=== PATIENT | male | born 1945 | race Caucasian/White ===

== ENCOUNTER 2016-10-01 10:32 | Outpatient (CLI) | payer MEDICARE, OTHER | END 2016-10-01 10:33 | disposition critical access hospital (66) | DX: R56.9 Unspecified convulsions (principal) | CPT/HCPCS: A0425; A0427 ==

== ENCOUNTER 2016-10-01 10:52 | Emergency (ER) | payer MEDICARE, OTHER ==
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
[2016-10-01 11:51] LABS: BASOPHILS % (AUTO) 0.2 %; EOSINOPHILS % (AUTO) 0.2 %; HCT - HEMATOCRIT 41.7 % (42.0-52.0); HGB - HEMOGLOBIN 14.5 g/dL (14.0-18.0); LYMPHOCYTES # (AUTO) 0.4 10^3/uL (1.5-3.5); LYMPHOCYTES % (AUTO) 4.8 %; MEAN CORPUSCULAR HEMOGLOBIN 34.3 pg (27.0-31.0); MEAN CORPUSCULAR HGB CONC 34.8 g/dL (32.0-36.0); MEAN CORPUSCULAR VOLUME 98.5 fL (80.0-94.0); MEAN PLATELET VOLUME 7.1 fL (7.4-11.4); MONOCYTES # (AUTO) 0.6 10^3/uL (0.0-1.0); MONOCYTES % (AUTO) 6.8 %; NEUTROPHILS # (AUTO) 7.5 10^3/uL (1.5-6.6); RED BLOOD COUNT 4.24 10^6/uL (4.70-6.10); RED CELL DISTRIBUTION WIDTH 13.6 % (12.0-15.0); UNCORRECTED WHITE BLOOD COUNT 8.5 x10^3/uL; WHITE BLOOD COUNT 8.5 x10^3/uL (4.8-10.8)
[2016-10-01 12:04] LABS: ALBUMIN/GLOBULIN RATIO 1.6 (1.0-2.2); BILIRUBIN,TOTAL 0.8 mg/dL (0.2-1.0); CALCIUM 9.1 mg/dL (8.5-10.3); CREATININE 0.7 mg/dL (0.6-1.2); POTASSIUM 3.8 mmol/L (3.5-5.0); TOTAL PROTEIN 7.2 g/dL (6.7-8.2)
[2016-10-01 12:10] VITALS: BP 163/89
--- NOTE | 2016-10-01 12:29 | CT Report ---
EXAM: CT HEAD EXAM DATE: 10/01/2016 11:57 AM. CLINICAL HISTORY: Seizure. COMPARISON: CT HEAD 11/19/2012. TECHNIQUE: Multiaxial CT images were obtained from the foramen magnum to the vertex. IV contrast: Non e. Reformats: Coronal. In accordance with CT protocol optimization, one or more of the following dose reduction techniques w ere utilized for this exam: automated exposure control, adjustment of mA and/or KV based on patient s ize, or use of iterative reconstructive technique. FINDINGS: Parenchyma: Old infarct with encephalomalacia in the left occipital lobe extending to the left railroad conductor ior temporal and mildly the left parietal lobes. No acute intraparenchymal hemorrhage. Previous left intraparenchymal and intraventricular hemorrhage have resolved. No evidence of mass, midline shift, o r CT findings of infarction. Butcher-white differentiation is distinct. Extraaxial Spaces: Mild atrophic changes with mild prominent sulci. No subdural or epidural collectio ns identified. Ventricles: Mild ventriculomegaly. Normal in position. Sinuses: Imaged paranasal sinuses, orbits, and mastoids show no significant abnormality. Bones: No evidence of fracture or calvarial defect. Other: None. IMPRESSION: 1. No acute abnormality. 2. Old infarct with encephalomalacia in the left occipital lobe extending to the left posterior tempo ral and mildly the left parietal lobes. 3. No acute intraparenchymal hemorrhage. Previous left intraparenchymal and intraventricular hemorrha ge have resolved. 4. Mild atrophic changes. [facility] Referring Provider Line: [phone] SITE ID: [id number]
[2016-10-01 13:49] LABS: BILIRUBIN,URINE NEGATIVE (NEGATIVE)
[2016-10-01] MEDS ORDERED: LORazepam 2 MG/ML SYRINGE IVP STA (13:49)
[2016-10-01 13:50] LABS: UA CHARGE (STRIP ONLY) YES; UR CULTURE IF IND NOT INDICATED
[2016-10-01] MEDS ORDERED: LORazepam 2 MG/ML SYRINGE ONE (14:05)
== END 2016-10-01 14:20 | disposition home or self-care (01) ==
LOC: EDUNIT# → ED 10:52
DX: R56.9 Unspecified convulsions (principal); F10.10 Alcohol abuse, uncomplicated; F41.9 Anxiety disorder, unspecified; R00.0 Tachycardia, unspecified; I45.81 Long QT syndrome; E11.42 Type 2 diabetes mellitus with diabetic polyneuropathy; I10 Essential (primary) hypertension; Z86.73 Personal history of transient ischemic attack (TIA), and cerebral infarction without residual deficits; Z79.82 Long term (current) use of aspirin; Z96.649 Presence of unspecified artificial hip joint
CPT/HCPCS: 36415; 70450; 80053; 81003; 83690; 85025; 93005; 96374; 99284; 99285; J2060; 81001; 87086

== ENCOUNTER 2016-10-03 12:04 | Emergency (ER) | payer MEDICARE, OTHER ==
[2016-10-03] MEDS ORDERED: TETANUS/DIPHTHERIA/PERTUSSIS 0.5 ML SYRINGE IM ONE (12:37)
[2016-10-03] MEDS ORDERED: oxyCOD/ACETAMIN 5 MG/325 MG TABLET PO ONE ×2 (12:37→12:43)
[2016-10-03] MEDS: oxyCOD/ACETAMIN 5 MG/325 MG TABLET PO STA (12:40)
[2016-10-03] MEDS: TETANUS/DIPHTHERIA/PERTUSSIS 0.5 ML SYRINGE IM ONE (13:15)
--- NOTE | 2016-10-03 13:28 | CT Preliminary Report ---
Exam: CT Chest W/O IMPRESSION: Minimally displaced fractures of the right anterolateral seventh, eighth, and ninth ribs. No pneumothorax. [facility] SITE ID: [id number]
--- NOTE | 2016-10-03 13:31 | CT Report ---
EXAM: CT CHEST EXAM DATE: 10/03/2016 01:04 PM. CLINICAL HISTORY: Trauma right ant lat chest wall-fall. COMPARISONS: None. TECHNIQUE: Routine helical CT imaging was performed through the chest. IV contrast: None. Reconstruct ions: Coronal and sagittal. In accordance with CT protocol optimization, one or more of the following dose reduction techniques w ere utilized for this exam: automated exposure control, adjustment of mA and/or KV based on patient s ize, or use of iterative reconstructive technique. FINDINGS: Lungs/Pleura: Minimal atelectasis. No focal consolidation, effusion, or pneumothorax. Mediastinum: No adenopathy or cardiomegaly. Atherosclerotic calcifications. Bones: Minimally displaced fractures of the anterolateral right seventh through ninth ribs. Visualized Abdomen: Cholelithiasis. Normal adrenal glands. Other: Asymmetric gynecomastia. IMPRESSION: Minimally displaced fractures of the right anterolateral seventh, eighth, and ninth ribs. No pneumothorax. [facility] Referring Provider Line: [phone] SITE ID: [id number]
[2016-10-03 13:37] VITALS: BP 118/77
--- NOTE | 2016-10-03 14:29 | ED Physician Documentation ---
History of Present Illness - Stated complaint Stated Complaint: GLF/R SIDE PX - Chief complaint Chief Complaint: General - History obtained from History obtained from: Patient - Additonal information Additional information: Patient is a 70-year-old man with history of alcoholism. The patient had a seizure recently and fell yesterday injuring his right costal margin area. He did not seek medical attention initially but the pain failed to subside and actually got a little worse today. He is not overtly dyspneic and has no history of underlying pulmonary disease. He complains of pain to the right costal margin every time he takes a deep breath and with palpation. He denies any head or neck injury and has no numbness or tingling or any other extremity injury. He is here in emergency department accompanied by his . Review of systems: For pertinent positive and negative questions for the review of systems please see history of present illness. Otherwise all other systems have been reviewed and are negative. Dragon disclaimer: Parts of this medical record were created using voice recognition technology. Because of the inherent limitations of this system occasional same sounding word substitutions do occur and persist despite proofreading. Please read the document for context. PD PAST MEDICAL HISTORY - Past Medical History Cardiovascular: Hypertension, High cholesterol, Other Respiratory: Sleep apnea Neuro: CVA, TIA, Peripheral neuropathy, Seizure disorder Endocrine/Autoimmune: Type 2 diabetes GI: GERD : Benign prostate hypertrophy, Other HEENT: Chronic hearing loss, Other Psych: Anxiety, Claustrophobia Musculoskeletal: Osteoarthritis Derm: Other - Past Surgical History Past Surgical History: Yes General: Colonoscopy Ortho: Hip replacement HEENT: Tonsil/Adenoidectomy, Other - Present Medications Home Medications: Ambulatory Orders Medication Instructions Recorded Confirmed Aspirin [Aspirin EC] 325 mg PO DAILY 11/19/12 10/03/16 Calcium Carbonate/Vitamin D3 1 each PO DAILY 11/19/12 10/03/16 [Calcium 600 + Vit D Caplet] Gabapentin [Gralise] 600 mg PO BID 11/19/12 10/03/16 Meclizine [Antivert] 25 mg PO DAILY 11/19/12 10/03/16 Metoprolol Succinate [Toprol Xl] 50 mg PO DAILY 11/19/12 10/03/16 Multivitamin [Multi-Vitamin Daily] 1 each PO DAILY 11/19/12 10/03/16 Omeprazole [PriLOSEC] 20 mg PO DAILY 11/19/12 10/03/16 Ubidecarenone [Coq-10] 100 mg PO DAILY 11/19/12 10/03/16 busPIRone [Buspar] 5 mg PO BID 11/19/12 10/03/16 Folic Acid 1 mg PO DAILY 07/05/14 10/03/16 [place]-3 Fatty Acids/Fish Oil 1 tab PO TID 07/05/14 10/03/16 [[place] 3 1,000 mg Softgel] Coffee Extract [Green Coffee Rosas] 400 mg PO DAILY 10/16/14 10/03/16 Milk Thistle Seed Extract [Milk 360 mg PO DAILY 10/16/14 10/03/16 Thistle] oxyCODONE/ACET 5/325 [Percocet 5 1 each PO Q4-6H PRN #16 tablet 10/03/16 mg/325 mg] - Allergies Allergies/Adverse Reactions: Allergies Allergy/AdvReac Type Severity Reaction Status Date / Time celecoxib [From Celebrex] Allergy Severe swelling & Verified 10/03/16 12:31 hives simvastatin [From Zocor] Allergy Unknown unknown Verified 10/03/16 12:31 - Social History Does the pt smoke?: No Smoking Status: Never smoker Does the pt drink ETOH?: Yes Does the pt have substance abuse?: No - POLST Patient has POLST: No PD ED PE NORMAL - General General: Alert and oriented X 3, No acute distress, Well developed/nourished - HEENT HEENT: Atraumatic, PERRL, EOMI - Neck Neck: Supple, no meningeal sign - Cardiac Cardiac: RRR, No murmur - Respiratory Respiratory: No respiratory distress, Clear bilaterally - Abdomen Abdomen: Normal bowel sounds, Soft - Derm Derm: Normal color, Warm and dry - Extremities Extremities: No deformity - Neuro Neuro: Alert and oriented X 3, hydrate control tender 2-12 intact - Psych Psych: Normal mood - Free text exam Free text exam: Patient has a palpable hematoma and crepitance along the right anterior lateral chest wall approximately over theSeventh and eighth ribs laterally. He is otherwise breathing comfortably without any subcutaneous emphysema Results - Vitals Vitals: Vital Signs - 24 hr 10/03/16 10/03/16 12:07 13:34 Temperature 36.2 C L Heart Rate 70 66 Respiratory 18 16 Rate Blood Pressure 148/90 H 118/77 O2 Saturation 98 97 Oxygen O2 Source Room air PD MEDICAL DECISION MAKING - ED course ED course: This patient presents 1 day after a fall where he injured his right sided ribs. He does not have any abdominal pain complaints nausea vomiting constipation or diarrhea. Despite the rib injuries which are fairly obvious on physical examination he is breathing comfortably without a cough. He is normoxic. A CT of the patient's thorax was done without contrast and this demonstrates nondisplaced fractures of the seventh eighth and ninth rib. There is no evidence of pulmonary contusion or pneumothorax. The patient more or less assisted the test of time he has had this injury for over a day and is doing well at this standpoint I see no obvious need for admission. Had he come in yesterday might have contemplated admission however. There is no evidence of any other traumatic injury to his head neck or more importantly abdomen. He was given a small amount of pain medication and feels better. I will have respiratory issue him an incentive spirometer and he has agreed to use it religiously. I will also write him For small amount of narcotic analgesia. Disposition: To home Clinical impression: 1. Rib fractures right costal margin involving ribs7, 8, and 9 Departure - Departure Disposition: 01 Home, Self Care Clinical Impression: Rib fractures Qualifiers: Encounter type: initial encounter Rib fracture type: multiple ribs Fracture type: closed Laterality: right Qualified Code(s): S22.41XA - Multiple fractures of ribs, right side, initial encounter for closed fracture Condition: Good Instructions: ED Fx Rib Follow-Up: Jorge Luis Foley MD [Primary Care Provider] - Prescriptions: oxyCODONE/ACET 5/325 [Percocet 5 mg/325 mg] 1 each PO Q4-6H PRN #16 tablet PRN Reason: Pain
== END 2016-10-03 14:40 | disposition home or self-care (01) ==
LOC: ED 12:04
DX: S22.41XA Multiple fractures of ribs, right side, initial encounter for closed fracture (principal); W01.0XXA Fall on same level from slipping, tripping and stumbling without subsequent striking against object, initial encounter; I10 Essential (primary) hypertension; E78.00 Pure hypercholesterolemia, unspecified; G47.30 Sleep apnea, unspecified; E11.9 Type 2 diabetes mellitus without complications; K21.9 Gastro-esophageal reflux disease without esophagitis; N40.0 Benign prostatic hyperplasia without lower urinary tract symptoms; M19.90 Unspecified osteoarthritis, unspecified site; Z79.82 Long term (current) use of aspirin; Z86.73 Personal history of transient ischemic attack (TIA), and cerebral infarction without residual deficits
CPT/HCPCS: 71250; 90471; 99283; 99284

== ENCOUNTER 2017-09-27 14:51 | Outpatient (CLI) | payer MEDICARE, OTHER ==
[2017-09-27] MEDS ORDERED: GADOBUTROL 10 MMOL/10 ML VIAL ONE (15:05)
[2017-09-27] MEDS ORDERED: GADOBUTROL 10 MMOL/10 ML VIAL IVP ONE (15:18)
--- NOTE | 2017-09-28 14:38 | MRI Report ---
Procedure Date: 09/27/2017 Accession Number: [id number] / [id number] Procedure: MRI - Brain W/WO CPT Code: FULL RESULT: EXAM: MRI BRAIN WITHOUT AND WITH CONTRAST EXAM DATE: 09/27/2017 04:00 PM. CLINICAL HISTORY: Recurrent spells of expressive aphasia. COMPARISON: MRI of the brain 01/07/2015, 08/20/2012. CT scan of the head 10/01/2016. TECHNIQUE: Multiplanar, multisequence T1-weighted and fluid-sensitive MR sequences of the brain were performed. Sequences optimized for routine evaluation. Other: None. IV Contrast: 10 cc Gadavist. FINDINGS: Brain Volume: Normal for age. Parenchyma: No acute hemorrhage, mass, or infarct. Cystic encephalomalacia from old left JEWEL STRIPPER territory infarct is seen involving the inferior left occipital and posterior temporal lobes. This is unchanged. Heterogeneous linear gyriform hypointense signal with magnetic susceptibility consistent with hemosiderin staining is evident. This could be secondary to sequela of previous hemorrhagic infarct. This is unchanged. No parenchymal hematoma. Additionally subependymal hypointense magnetic susceptibility consistent with hemosiderin staining is seen throughout the left lateral ventricle. This predominates in the temporal horn, atrium, and along the septum pellucidum throughout the body. Dependent subependymal hypointense magnetic susceptibility is seen in the occipital horn of the right lateral ventricle. Gyriform pial surface magnetic susceptibility is seen laterally at the right temporoparietal junction. This is also seen inferomedially in the left occipital lobe and adjacent superior cerebellum at the level of the incisura. This is consistent with superficial siderosis. Mild patchy white matter T2 and FLAIR bright signal is seen throughout the cerebral hemispheres. Mild prominence to perivascular spaces is seen overlying the cerebral convexities bilaterally. No abnormal enhancement. Ventricles/Cisterns: No hydrocephalus. No abnormal extra-axial fluid collection or hemorrhage. Orbits: Symmetric and unremarkable. [place]: The pituitary gland, cavernous sinuses, suprasellar cistern and optic chiasm are unremarkable. IAC: Symmetric and unremarkable. Vasculature: Normal signal flow void is seen in the major arterial structures at the skull base. The dural sinuses are patent and enhance normally. Sinuses: No acute sinus disease. Bones: No focal pathologic appearing marrow signal changes. Other: None. IMPRESSION: 1. No acute intracranial abnormality. No acute infarct, mass, hemorrhage, or abnormal enhancement. 2. Cystic encephalomalacia likely from old left JEWEL STRIPPER territory infarct involving the inferior left occipital and posterior temporal lobes. Hypointense magnetic susceptibility consistent with hemosiderin from old hemorrhage is seen. 3. Superficial siderosis is noted. This is seen in a subependymal location throughout the left lateral ventricle and dependently in the occipital horn of the right lateral ventricle. This is noted lateral to the right temporoparietal junction. This is seen at the level of the incisura involving inferior occipital lobes and superior cerebellum. This is consistent with sequela of old hemorrhage. 4. Mild white matter T2/FLAIR bright signal seen in the cerebral hemispheres. This is nonspecific but typically secondary to small vessel ischemic change. [facility]
== END 2017-09-27 14:52 | disposition home or self-care (01) ==
LOC: DI 14:51
PROVIDERS: ATTEND Internal Medicine
DX: R47.01 Aphasia (principal); R26.89 Other abnormalities of gait and mobility; G93.89 Other specified disorders of brain; Z86.73 Personal history of transient ischemic attack (TIA), and cerebral infarction without residual deficits
CPT/HCPCS: 70553; A9585

== ENCOUNTER 2017-11-03 11:06 | Outpatient (CLI) | payer MEDICARE, OTHER ==
[2017-11-03 11:38] LABS: CREATININE 0.8 mg/dL (0.6-1.2)
== END 2017-11-03 11:07 | disposition home or self-care (01) ==
LOC: LAB 11:06
PROVIDERS: ATTEND Physician Assistant Medical
DX: B35.1 Tinea unguium (principal); Z79.899 Other long term (current) drug therapy
CPT/HCPCS: 36415; 82565; 84450; 84460

== ENCOUNTER 2017-12-30 08:31 | Outpatient (CLI) | payer MEDICARE, OTHER ==
[2017-12-30 09:10] LABS: CREATININE 0.7 mg/dL (0.6-1.2)
== END 2017-12-30 08:32 | disposition home or self-care (01) ==
LOC: LAB 08:31
PROVIDERS: ATTEND Physician Assistant Medical
DX: B35.1 Tinea unguium (principal); Z79.899 Other long term (current) drug therapy
CPT/HCPCS: 36415; 82565; 84450; 84460

== ENCOUNTER 2018-08-04 12:06 | Outpatient (CLI) | payer MEDICARE, OTHER ==
[2018-08-04 12:38] LABS: ALBUMIN 3.8 g/dL (3.2-5.5); BILIRUBIN,DIRECT 0.1 mg/dL (0.1-0.5); BILIRUBIN,TOTAL 0.6 mg/dL (0.2-1.0); TOTAL PROTEIN 6.4 g/dL (6.7-8.2)
== END 2018-08-04 12:07 | disposition home or self-care (01) ==
LOC: LAB 12:06
PROVIDERS: ATTEND Physician Assistant Medical
DX: B35.1 Tinea unguium (principal); Z79.899 Other long term (current) drug therapy
CPT/HCPCS: 36415; 80076

== ENCOUNTER 2018-11-30 09:33 | Outpatient (CLI) | payer MEDICARE, OTHER | END 2018-11-30 09:34 | disposition critical access hospital (66) | LOC: EMS 09:33 | PROVIDERS: ATTEND Surgery | DX: R56.9 Unspecified convulsions (principal) | CPT/HCPCS: A0425; A0429 ==

== ENCOUNTER 2018-11-30 09:45 | Inpatient (IN) | payer MEDICARE, OTHER ==
--- NOTE | 2018-11-30 09:58 | ED Physician Documentation ---
PD HPI SEIZURE - Stated complaint Stated Complaint: SEIZURE - Chief complaint Chief Complaint: Neuro - History obtained from History obtained from: Patient - History of Present Illness Timing - onset: Today (This occurred just prior to coming to the ER. He states he has been feeling okay this morning without doing some chores into the garage. There is no strenuous activity. He states he started feeling lightheaded and nauseous and then does not remember until the ambulance ride here. His states she heard a thud from the garage and went out to find him having general motor seizure activity. This lasted under a minute. It did appear that he had hit his head with some bleeding from an abrasion on the scalp. She called the ambulance and the patient had stopped seizing and was awake but confused on their arrival. He had improvement in this to more alertness by arrival here in the ER. He denies any prior seizure episodes. He has been having some lightheaded brief episodes over the last month or so but nothing of this degree.) Witnessed: Witnessed Number of seizures: Single, Lasted minutes (1) Description of seizure activity: Generalized Injury during seizure: Fell, Head injury Associated symptoms: Headache. No: Vision changes, Chest pain, Palpitations History of seizures: First seizure. No: Prior EtOH wdrawal sz Contributing factors: No: EtOH withdrawal (He states he probably "drinks too much" when asked about alcohol consumption. He denies any withdrawal type symptoms. He states he does drink daily but not throughout the whole day. He was not having any tremor or rash or anxiety feelings prior to this episode.), Fever, Sleep deprivation Similar symptoms before: No diagnosis (He has had brief lightheaded episodes of just 30 seconds at a time up to a minute or 2. He had not had any syncope with it. His describes one episode where he was laying down in the car or head rested back and he did not answer right away but she was not sure if he would passed out or not. 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 However this only lasted 2 days before falling off in the mail the back again. He states he did not have any episodes during the 2 days he had the monitor on.) Recently seen: Clinic Review of Systems Constitutional: denies: Fever, Chills, Myalgias Eyes: denies: Loss of vision, Decreased vision Nose: denies: Rhinorrhea / runny nose, Congestion Throat: denies: Sore throat Respiratory: denies: Cough GI: denies: Abdominal Pain, Nausea, Vomiting, Diarrhea, Bloody / black stool : denies: Dysuria, Frequency Skin: reports: Abrasion (s). denies: Laceration (s) Musculoskeletal: denies: Neck pain, Back pain Neurologic: reports: Syncope. denies: Focal weakness, Numbness, Headache Endocrine: denies: Polydypsia, Weight loss Immunocompromised: denies: Immunocompromised PD PAST MEDICAL HISTORY - Past Medical History Cardiovascular: Hypertension, High cholesterol, Other Respiratory: Sleep apnea Endocrine/Autoimmune: Type 2 diabetes GI: GERD : Benign prostate hypertrophy, Other HEENT: Chronic hearing loss, Other Psych: Anxiety, Claustrophobia Musculoskeletal: Osteoarthritis Derm: Other - Past Surgical History Past Surgical History: Yes General: Colonoscopy Ortho: Hip replacement HEENT: Tonsil/Adenoidectomy, Other - Present Medications Home Medications: Ambulatory Orders Medication Instructions Recorded Confirmed Aspirin [Aspirin EC] 325 mg PO DAILY 11/19/12 10/03/16 Calcium Carbonate/Vitamin D3 1 each PO DAILY 11/19/12 10/03/16 [Calcium 600 + Vit D Caplet] Gabapentin [Gralise] 600 mg PO BID 11/19/12 10/03/16 Meclizine [Antivert] 25 mg PO DAILY 11/19/12 10/03/16 Metoprolol Succinate [Toprol Xl] 50 mg PO DAILY 11/19/12 10/03/16 Multivitamin [Multi-Vitamin Daily] 1 each PO DAILY 11/19/12 10/03/16 Omeprazole [PriLOSEC] 20 mg PO DAILY 11/19/12 10/03/16 Ubidecarenone [Coq-10] 100 mg PO DAILY 11/19/12 10/03/16 busPIRone [Buspar] 5 mg PO BID 11/19/12 10/03/16 Folic Acid 1 mg PO DAILY 07/05/14 10/03/16 [place]-3 Fatty Acids/Fish Oil 1 tab PO TID 07/05/14 10/03/16 [[place] 3 1,000 mg Softgel] Coffee Extract [Green Coffee Rosas] 400 mg PO DAILY 10/16/14 10/03/16 Milk Thistle Seed Extract [Milk 360 mg PO DAILY 10/16/14 10/03/16 Thistle] oxyCODONE/ACET 5/325 [Percocet 5 1 each PO Q4-6H PRN #16 tablet 10/03/16 mg/325 mg] - Allergies Allergies/Adverse Reactions: Allergies Allergy/AdvReac Type Severity Reaction Status Date / Time celecoxib [From Celebrex] Allergy Severe swelling & Verified 10/03/16 12:31 hives simvastatin [From Zocor] Allergy Unknown unknown Verified 10/03/16 12:31 - Social History Does the pt smoke?: No Smoking Status: Never smoker Does the pt drink ETOH?: Yes Does the pt have substance abuse?: No - POLST Patient has POLST: No PD ED PE NORMAL - Vitals Vital signs reviewed: Yes - General General: Alert and oriented X 3, No acute distress, Well developed/nourished - HEENT HEENT: PERRL, Pharynx benign, Other (He has an abrasion without any bleeding on the top of the head. He has some mild tenderness in the para cervical muscles. There is no midline tenderness. He has normal strength and movement in both arms. He has some decreased sensation in both legs which he states is normal for his neuropathy. There is a brace on the right ankle that he uses chronically.) - Neck Neck: Supple, no meningeal sign, No adenopathy - Cardiac Cardiac: RRR, No murmur - Respiratory Respiratory: Clear bilaterally - Abdomen Abdomen: Soft, Non tender - Male Male : Deferred - Rectal Rectal: Deferred - Back Back: No CVA TTP, No spinal TTP - Derm Derm: Normal color, Warm and dry - Extremities Extremities: No tenderness to palpate, Normal ROM s pain - Neuro Neuro: Alert and oriented X 3, No motor deficit, Normal speech, Other (Decreased sensation in both feet and lower legs which she states is chronic for him.) Eye Opening: Spontaneous Motor: Obeys Commands Verbal: Oriented GCS Score: 15 Results - Vitals Vitals: Vital Signs - 24 hr 11/30/18 11/30/18 11/30/18 09:48 10:10 10:41 Temperature 36.8 C Heart Rate 116 H 115 H 120 H Respiratory 17 20 20 Rate Blood Pressure 148/78 H 155/79 H 137/75 H O2 Saturation 96 95 97 11/30/18 11:52 Temperature Heart Rate 100 Respiratory 16 Rate Blood Pressure 160/88 H O2 Saturation 98 Oxygen O2 Source Room air - EKG (time done) 10:27 Rate: Rate (enter#) (105) Rhythm: Sinus tachycardia [place]: Normal Intervals: Normal TN QRS: Normal Ischemia: Normal ST segments. No: ST elevation c/w ischemia, ST depression - Labs Labs: Laboratory Tests 11/30/18 11/30/18 11/30/18 10:35 10:35 10:35 WBC 6.5 RBC 4.20 L Hgb 14.0 Hct 38.9 L MCV 92.6 MCH 33.3 H MCHC 36.0 RDW 12.1 Plt Count 138 MPV 9.1 Neut # (Auto) 5.5 Lymph # (Auto) 0.5 L [place] # (Auto) 0.5 Eos # (Auto) 0.0 Baso # (Auto) 0.0 Absolute Nucleated RBC 0.00 Nucleated RBC % 0.0 Sodium 124 L Potassium 3.6 Chloride 85 L Carbon Dioxide 23 Anion Gap 16.0 H BUN 12 Creatinine 0.8 Estimated GFR (MDRD) 96 Glucose 198 H Lactic Acid 3.6 H* Calcium 9.5 Magnesium 1.7 Total Bilirubin 1.2 H AST 29 ALT 23 Alkaline Phosphatase 80 Troponin I High Sens Total Protein 7.2 Albumin 4.5 Globulin 2.7 Albumin/Globulin Ratio 1.7 Lipase 26 TSH Ethyl Alcohol < 5.0 11/30/18 11/30/18 10:35 10:35 WBC RBC Hgb Hct MCV MCH MCHC RDW Plt Count MPV Neut # (Auto) Lymph # (Auto) [place] # (Auto) Eos # (Auto) Baso # (Auto) Absolute Nucleated RBC Nucleated RBC % Sodium Potassium Chloride Carbon Dioxide Anion Gap BUN Creatinine Estimated GFR (MDRD) Glucose Lactic Acid Calcium Magnesium Total Bilirubin AST ALT Alkaline Phosphatase Troponin I High Sens 4.1 Total Protein Albumin Globulin Albumin/Globulin Ratio Lipase TSH 1.08 Ethyl Alcohol - Rads (name of study) head CT Radiology: Prelim report reviewed (no acute process), See rad report cervical CT Radiology: Prelim report reviewed, See rad report (no fractures) PD MEDICAL DECISION MAKING - ED course Complexity details: reviewed results, re-evaluated patient, considered differential (Unclear whether he had a syncopal episode followed with head injury and seizure activity. Unlikely to be a primary seizure episode at his age. He had a postictal type. And clearing suggestive of seizure. However this may have been cardiovascular. His blood sugar was checked on route and was normal. I think further evaluation is needed as well as heart monitoring for syncope versus seizure versus concussion. I will talk with the hospitalist.), d/w patient, d/w family Departure - Departure Disposition: 66 [facility] DC/Xfer Clinical Impression: Episode of syncope, Head contusion, Seizure Condition: Stable
[2018-11-30] MEDS ORDERED: SODIUM CHLORIDE 0.9% 1,000 ML IV ONE (10:15)
[2018-11-30] MEDS ORDERED: LORazepam 2 MG/ML VIAL IVP STA (10:16)
[2018-11-30 10:44] LABS: BASOPHILS % (AUTO) 0.2 %; EOSINOPHILS % (AUTO) 0.3 %; LYMPHOCYTES # (AUTO) 0.5 10^3/uL (1.5-3.5); LYMPHOCYTES % (AUTO) 6.9 %; MEAN CORPUSCULAR HEMOGLOBIN 33.3 pg (27.0-31.0); MEAN CORPUSCULAR VOLUME 92.6 fL (80.0-94.0); MEAN PLATELET VOLUME 9.1 fL (7.4-11.4); MONOCYTES # (AUTO) 0.5 10^3/uL (0.0-1.0); MONOCYTES % (AUTO) 7.1 %; NEUTROPHILS # (AUTO) 5.5 10^3/uL (1.5-6.6); NEUTROPHILS % (AUTO) 84.7 %; PLT - PLATELET COUNT 138 10^3/uL (130-450); RED CELL DISTRIBUTION WIDTH 12.1 % (12.0-15.0); WHITE BLOOD COUNT 6.5 x10^3/uL (4.8-10.8)
[2018-11-30 10:57] LABS: ALBUMIN 4.5 g/dL (3.2-5.5); ALBUMIN/GLOBULIN RATIO 1.7 (1.0-2.2); ALKALINE PHOSPHATASE 80 IU/L (42-121); ALT ALANINE AMINOTRANSFERASE 23 IU/L (10-60); AST ASPARTATE AMINOTRANSFERASE 29 IU/L (10-42); BILIRUBIN,TOTAL 1.2 mg/dL (0.2-1.0); BUN - BLOOD UREA NITROGEN 12 mg/dL (6-20); CALCIUM 9.5 mg/dL (8.5-10.3); CARBON DIOXIDE - CO2 23 mmol/L (21-32); CHLORIDE 85 mmol/L (101-111); CREATININE 0.8 mg/dL (0.6-1.2); GFR - MDRD 96 (>89); GLUCOSE 198 mg/dL (70-100); LIPASE 26 U/L (22-51); MAGNESIUM 1.7 mg/dL (1.7-2.8); SODIUM 124 mmol/L (135-145); TOTAL PROTEIN 7.2 g/dL (6.7-8.2)
--- NOTE | 2018-11-30 11:47 | CT Report ---
Reason: seizure this morning; struck head Procedure Date: 11/30/2018 Accession Number: [id number] / [id number] Procedure: CT - CERVICAL SPINE WO CPT Code: FULL RESULT: EXAM: CT CERVICAL SPINE WITHOUT CONTRAST DATE: 11/30/2018 11:23 AM. HISTORY: Seizure this morning; struck head. COMPARISONS: HEAD W/O 10/01/2016 11:51 AM. TECHNIQUE: Thin-section axial images were acquired of the cervical spine without contrast. Post-processing: Coronal and sagittal reformats. Other: None. In accordance with CT protocol optimization, one or more of the following dose reduction techniques were utilized for this exam: automated exposure control, adjustment of mA and/or KV based on patient size, or use of iterative reconstructive technique. FINDINGS: Alignment: No scoliosis or spondylolisthesis. Bones: No fracture or bone lesion. Interspace Levels/Facets: Degenerative facet changes are present throughout majority of cervical spine. C1-C2: Unremarkable. C2-C3: Unremarkable. C3-C4: Bilateral facet joints are partially ankylosed. C4-C5: Unremarkable. C5-C6: Moderate loss of disk space height. Moderate bilateral neuroforaminal narrowing due to uncovertebral and facet joint hypertrophy. C6-C7: Moderate to severe left and mild right neural foraminal narrowing due to bilateral uncovertebral joint hypertrophy and left facet hypertrophy. C7-T1: Unremarkable. Musculature: Normal. No fatty atrophy. Other: The paravertebral and prevertebral soft tissues are unremarkable. The lung apices are clear. IMPRESSION: 1. Overall moderate degenerative changes. 2. No fracture. RADIA
--- NOTE | 2018-11-30 11:53 | CT Report ---
Reason: seizure this morning Procedure Date: 11/30/2018 Accession Number: [id number] / [id number] Procedure: CT - HEAD WO CPT Code: FULL RESULT: EXAM: CT HEAD EXAM DATE: 11/30/2018 11:23 AM. CLINICAL HISTORY: Seizure this morning. COMPARISON: HEAD W/O 10/01/2016 11:51 AM. TECHNIQUE: Multiaxial CT images were obtained from the foramen magnum to the vertex. Reformats: Sagittal and coronal. IV contrast: None. In accordance with CT protocol optimization, one or more of the following dose reduction techniques were utilized for this exam: automated exposure control, adjustment of mA and/or KV based on patient size, or use of iterative reconstructive technique. FINDINGS: Parenchyma: No intraparenchymal hemorrhage. No evidence of mass, midline shift, or CT findings of acute infarction. Butcher-white differentiation is distinct. Diffuse chronic microangiopathic white matter changes are evident. Left occipital temporal encephalomalacia from remote left DOLL WIG MAKER ROOTED HAIR infarct again noted. Extraaxial Spaces: Normal for age. No subdural or epidural collections identified. Ventricles: The ventricles and cortical sulci are enlarged, consistent with age-related tissue loss. Sinuses and orbits: Imaged paranasal sinuses, orbits, and mastoids show no significant abnormality. Bones: No evidence of fracture or calvarial defect. Other: None. IMPRESSION: 1. Left occipital-temporal encephalomalacia from remote left DOLL W[employer] MA[employer]ER ROOTED HAIR infarct again noted. 2. No acute intracranial hemorrhage or large recent infarct evident. 3. Generalized age-related cortical atrophic changes. RADIA
[2018-11-30] MEDS ORDERED: PROCHLORPERAZINE 10 MG/2 ML VIAL IVP PRN (13:14)
[2018-11-30 13:38] LABS: INR 1.1 (0.8-1.2); PT - PROTHROMBIN TIME 12.2 secs (9.9-12.6)
[2018-11-30] MEDS: SODIUM CHLORIDE 0.9% 1,000 ML IV SCH (14:00)
[2018-11-30 14:40] LABS: VBG PCO2 38.7 mmHg (41-51); VBG PH 7.416 (7.31-7.41); VBG PO2 43.2 mmHg (25-47); VBG TOTAL CO2 25.5 mmol/L (24-29)
[2018-11-30 15:55] LABS: HB2 TOTAL 15.4 g/dL; HEMOGLOBIN A1C 0.63 g/dL; HEMOGLOBIN A1C % 5.9 % (4.6-6.2)
[2018-11-30 16:21] LABS: MUDS CUTOFF CONCENTRATIONS CUTOFF CONC BELOW:
[2018-11-30 16:24] LABS: BILIRUBIN,URINE NEGATIVE (NEGATIVE); GLUCOSE, URINE (UA) NEGATIVE (NEGATIVE); KETONES,URINE (UA) 15 mg/dL (NEGATIVE); LEUKOCYTE ESTERASE, URINE NEGATIVE (NEGATIVE); NITRITE,URINE NEGATIVE (NEGATIVE); OCCULT BLOOD,URINE NEGATIVE (NEGATIVE); PROTEIN,URINE NEGATIVE (NEGATIVE); UROBILINOGEN,URINE 1 (NORMAL) E.U./dL (NORMAL)
[2018-11-30 16:25] LABS: CLARITY,URINE CLEAR (CLEAR)
[2018-11-30 16:34] LABS: AMPHETAMINE SCREEN,URINE NEGATIVE (NEGATIVE); BENZODIAZEPINES SCREEN, URINE NEGATIVE (NEGATIVE); COCAINE SCREEN URINE NEGATIVE (NEGATIVE); METHADONE SCREEN, URINE NEGATIVE (NEGATIVE); METHAMPHETAMINES SCREEN, URINE NEGATIVE (NEGATIVE); OPIATE SCREEN, URINE NEGATIVE (NEGATIVE); OXYCODONE SCREEN, URINE NEGATIVE (NEGATIVE); PROPOXYPHENE SCREEN, URINE NEGATIVE (NEGATIVE); TRICYCLIC ANTIDEPRESSANT,URINE NEGATIVE (NEGATIVE)
[2018-11-30] MEDS: INSULIN ASPART 300 UNIT/3 ML PEN SUBQ SCH ×2 (16:44→21:07)
[2018-11-30] MEDS: SODIUM CHLORIDE FLUSH 0.9% 10 ML SYRINGE IVP SCH ×2 (16:49→21:01)
[2018-11-30] MEDS: ACETAMINOPHEN 325 MG TABLET PO PRN (18:08)
[2018-11-30] MEDS: LORazepam 2 MG/ML VIAL IVP PRN (18:31)
--- NOTE | 2018-11-30 19:04 | HISTORY & PHYSICAL EXAMINATION ---
DATE OF SERVICE: 11/30/2018 Physician: Asha Noonan MD HISTORY OF PRESENT ILLNESS: This is a 72-year-old white male with a history of borderline diabetes, only on diet, history of hypertension, and anxiety and depression. There is an intermittent history of alcohol abuse. He was at [facility] for detox as an inpatient several months ago, however, resumed drinking right after he was discharged and has done that for about 3 months now, and he drinks 4 vodka cocktails every night. His has been out of town for the last 3 and a half weeks, helping a friend with chemotherapy, and just came back into town 4 days ago. The man has been evaluated for a one-year history of "spells," which are episodes of lightheadedness and dizziness and near syncope along with brief nausea, but no vomiting. They can happen up to 1-2 times a day, and he has been referred to a folder gluer operator, who started the evaluation with a 1-week Holter monitor. The patient wore the leads for 2 days, then they fell off, and during those 2 days, he had not one of his "spells". The results of 2 days of monitoring are not yet available to the patient. The patient and describe 2 episodes of this "spell" resulting in full syncope: One when he was sitting on a couch and when the syncope occurred, he slumped his body onto the couch and then was able to wake up and sit up and continue what he was doing, and the other episode happened when he was the passenger in a car and his saw that he had fainted, and as he was waking up, when she asked him how he felt, his answer was gibberish, but they did not go to an ER then. Today, the patient went out in the morning to work in the garage and reports that he felt his dizzy "spell" starting, and held onto the side of a car. At this point the heard through the window, that he was moaning. As she went to check on him, she heard a thump and found him on the ground of the garage, and he was having tonic-clonic seizures which lasted approximately 2 minutes. She called the ambulance and he was waking up at this point, and the ambulance brought him to the emergency room. There was a scalp laceration on the upper part of his scalp, and he had no focal findings on a neurology exam. He underwent a CT scan, which showed no sign of an acute stroke. The patient is admitted to the ICU for new onset of seizures, syncopal episode, and abnormal labs. He complains of pain in his lateral upper left ribcage. PAST MEDICAL HISTORY 1. Hypertension. 2. Alcohol abuse. 3. Borderline diabetes; only on a diet. 4. Left knee replacement. 5. Peripheral neuropathy. MEDICATIONS 1. Naprosyn 220 mg b.i.d. p.r.n. 2. Baby aspirin daily. 3. Prilosec 20 mg p.r.n. heartburn. 4. Antivert p.r.n. 5. Folic acid daily. 6. Multivitamin with calcium and vitamin D3 daily. 7. Losartan 80 mg every night. 8. Atorvastatin 20 mg every night. 9. Clonidine 0.1 mg p.r.n. for unknown diagnosis. 10. Tamsulosin 0.4 mg daily. 11. Toprol-XL 50 mg daily. 12. Lyrica 75 mg t.i.d. 13. BuSpar 15 mg b.i.d. 14. CoQ10 daily. ALLERGIES 1. SIMVASTATIN. 2. CELEBREX CAUSED SWELLING AND HIVES. FAMILY HISTORY: No inherited diseases. SOCIAL HISTORY: The patient is a nonsmoker, who never smoked, and uses no illicit drugs. He has an alcohol abuse history and currently has resumed heavy alcohol intake over the past 3 months. 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 He and his live in [place] for part of the year from January to May. REVIEW OF SYSTEMS: A comprehensive review of systems was performed and the pertinent positives are listed; the rest are negative. 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 VITAL SIGNS: Blood pressure 137/75, heart rate 120 in sinus tachycardia, afebrile, room air saturation 97%. HEENT: Reveals some diaphoresis. Moist oral mucosa. NECK: Without JVD, no carotid bruits, and is supple. CHEST: Clear. HEART: Normal heart sounds. No murmur or gallop. ABDOMEN: Soft with positive bowel sounds, nontender. EXTREMITIES: No clubbing, cyanosis or edema. NEUROLOGIC: Grossly intact. LABORATORY DATA: Sodium 124, potassium 3.6, BUN 12, creatinine 0.8. His anion gap is high at 16. His lactic acid is high at 3.6, magnesium 1.7, bilirubin 1.2 with normal AST and ALT and alkaline phosphatase and lipase. TSH normal at 1.08. HS troponin normal at 4.1. A1c normal at 5.9. White blood count 6.5, hemoglobin 14 with a normal MCV of 93, platelet count normal at 138. INR normal at 1.1. VBG done for pH, which was normal at 7.41. Toxicology is negative for everything, including alcohol, and serum ketones are negative. Urinalysis is unremarkable except having high urine ketones. CHEST X-RAY: Normal heart size. No active pulmonary disease. EKG: Sinus tachycardia, otherwise unremarkable. IMPRESSION/DIAGNOSES 1. Seizure, new onset. 2. Syncope. 3. Tachycardia. 4. Lactic acidosis. 5. Elevated anion gap metabolic acidosis. 6. Diabetes, on no medications. 7. Hyponatremia. 8. Alcohol abuse. 9. Rib pain. PLAN 1. Admit the patient to the ICU on telemetry. Neuro checks every 2 hours will be ordered. 2. Obtain imaging of the brain with a brain MRI. Obtain rib Xrays, evaluate for fractures. 3. Obtain an Echo to evaluate cardiac structure, given the syncope. 4. Begin IV hydration with crystalloids, as there appears to be volume depletion, likely from the alcohol use. Follow the lactic acid level. No empiric antibiotics planned as he does not have a fever or elevated WBC to suggest sepsis as the cause of the lactic acidosis. 5. Begin CIWA protocol and Ativan p.r.n. and order alcohol at dinnertime for preventing withdrawal onset. 6. The patient may not drive a car with this presentation of repeat lightheadedness and prior syncope, and now seizures. This was discussed with the . DEEP VENOUS THROMBOSIS PROPHYLAXIS: SCDs. CODE STATUS: FULL CODE. ATTESTATION: The patient is expected to be discharged or transferred to another facility within 96 hours: Yes. TD: 11/30/2018 18:12 MTDD
[2018-11-30] MEDS ORDERED: GADOBUTROL 15 MMOL/15 ML VIAL ONE (19:42)
[2018-11-30] MEDS ORDERED: LORazepam 2 MG/ML VIAL IVP PRN (19:42)
[2018-11-30] MEDS ORDERED: GADOBUTROL 15 MMOL/15 ML VIAL IVP ONE (19:53)
[2018-11-30] MEDS: LIQUOR 50 ML BOTTLE PO SCH (21:00)
--- NOTE | 2018-11-30 21:03 | MRI Report ---
Reason: Seizure, new onset Procedure Date: 11/30/2018 Accession Number: [id number] / [id number] Procedure: MRI - Brain W/WO CPT Code: FULL RESULT: EXAM: MRI BRAIN WITHOUT AND WITH CONTRAST EXAM DATE: 11/30/2018 08:24 PM. CLINICAL HISTORY: Seizure, new onset. COMPARISON: BRAIN W/WO 09/27/2017 3:07 PM HEAD W/O 11/30/2018 11:17 AM HEAD W/O 10/01/2016 11:51 AM HEAD W/O 11/19/2012 1:26 PM. TECHNIQUE: Multiplanar, multisequence T1-weighted and fluid-sensitive MR sequences of the brain were performed before and after administration of intravenous contrast. Sequences optimized for seizure evaluation. Other: None. IV Contrast: Without and with contrast, 10 cc IV Gadavist. FINDINGS: Redemonstrated is encephalomalacia in the posterior and inferior left occipital lobe from previously seen intraparenchymal hemorrhage with intraventricular extension. There is hemosiderin deposition in the encephalomalacia consistent with remote intraparenchymal hemorrhage. There is superficial siderosis along the surface of the left lateral ventricle temporal horn, occipital horn, and septum pellucidum. Superficial siderosis also demonstrated along the superior left cerebellar folia, and superior vermis, unchanged. No acute infarct, intracranial hemorrhage, midline shift or hydrocephalus. Limited evaluation of the arterial, and dural venous sinus structures are unremarkable. There is no abnormal parenchymal, meningeal or leptomeningeal enhancement. There is no abnormal enhancement in the internal auditory canals or membranous labyrinth. Bilateral hyperostosis frontalis internus, unchanged. Scattered T2 FLAIR hyperintensities in the subcortical frontal and parietal lobes with confluent T2 hyperintensities in the periventricular occipital and temporal lobes, nonspecific, most likely chronic microvascular angiopathy. There has been slight interval progression compared to MRI 09/27/2017. There is also minimal ill-defined T2 hyperintensity in the central isabella, commonly seen in chronic microvascular angiopathy. There is asymmetric left hippocampal volume loss with increased T2 FLAIR hyperintensity signal, raising suspicion for left mesial temporal/hippocampal sclerosis. Incidental 13 x 10 x 17 mm arachnoid cyst adjacent to the anterior superior right temporal lobe. Orbits, optic nerve sheath complex, chiasm, pituitary, cavernous sinus and Meckel's cave appear normal. Marrow signal and extracranial soft tissue unremarkable. IMPRESSION: 1. 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 2. Encephalomalacia/sequela of previous hemorrhage in the posterior left temporal lobe/occipital lobe with hemosiderosis at the encephalomalacia in left lateral ventricle. This is from a known intraparenchymal hemorrhage with intraventricular extension in 2013. 3. No acute abnormality. No acute infarct, midline shift or hydrocephalus. No abnormal enhancement. 4. Scattered T2 FLAIR hyperintensities in the cerebral white matter, nonspecific but most likely chronic microvascular angiopathy. RADIA
[2018-11-30] MEDS: FAMOTIDINE 20 MG TABLET PO SCH (21:06)
[2018-11-30] MEDS: busPIRone 5 MG TABLET PO SCH (21:31)
[2018-11-30] MEDS: METOPROLOL SUCCINATE 50 MG TABLET PO SCH (21:31)
[2018-11-30 21:34] LABS: BASOPHILS % (AUTO) 0.3 %; EOSINOPHILS % (AUTO) 0.4 %; HGB - HEMOGLOBIN 13.3 g/dL (14.0-18.0); LYMPHOCYTES # (AUTO) 0.8 10^3/uL (1.5-3.5); MEAN CORPUSCULAR HEMOGLOBIN 33.8 pg (27.0-31.0); MEAN CORPUSCULAR VOLUME 91.3 fL (80.0-94.0); MEAN PLATELET VOLUME 9.2 fL (7.4-11.4); MONOCYTES % (AUTO) 14.4 %; NEUTROPHILS % (AUTO) 72.2 %; PLT - PLATELET COUNT 147 10^3/uL (130-450); RED BLOOD COUNT 3.93 10^6/uL (4.70-6.10); RED CELL DISTRIBUTION WIDTH 12.2 % (12.0-15.0); WHITE BLOOD COUNT 6.9 x10^3/uL (4.8-10.8)
--- NOTE | 2018-11-30 21:39 | XRAY Report ---
Reason: Fall at home, eval for fractures Procedure Date: 11/30/2018 Accession Number: [id number] / [id number] Procedure: XR - Ribs w/PA Chest LT CPT Code: FULL RESULT: EXAM: LEFT RIB RADIOGRAPHY EXAM DATE: 11/30/2018 08:30 PM. CLINICAL HISTORY: Fall at home, eval for fractures. COMPARISON: CHEST W/O 10/03/2016 12:54 PM. TECHNIQUE: 1 view of the chest and 2 views of the ribs. FINDINGS: Bones: Chronic or subacute posterior right seventh rib fracture. No acute displaced fractures identified on the left side. Lungs: No infiltrates. No pleural effusions or pneumothorax. Mediastinum: Heart size within normal limits. No pulmonary vascular congestion. Osseous structures: No significant focal osseous lesions. IMPRESSION: 1. No acute cardiopulmonary findings were graphically. 2. No displaced left-sided rib fractures adjacent to the site of the BB marker. 3. Chronic or subacute posterior right seventh rib fracture. RADIA
[2018-11-30 21:46] LABS: ALBUMIN 3.9 g/dL (3.2-5.5); ALBUMIN/GLOBULIN RATIO 1.6 (1.0-2.2); BILIRUBIN,TOTAL 0.8 mg/dL (0.2-1.0); CALCIUM 8.8 mg/dL (8.5-10.3); CREATININE 0.6 mg/dL (0.6-1.2); TOTAL PROTEIN 6.3 g/dL (6.7-8.2)
[2018-11-30 21:57] LABS: MAGNESIUM 1.8 mg/dL (1.7-2.8)
[2018-12-01] MEDS: ACETAMINOPHEN 325 MG TABLET PO PRN ×2 (00:38→14:45)
[2018-12-01] MEDS: LORazepam 2 MG/ML VIAL IVP PRN ×2 (00:38→22:22)
[2018-12-01] MEDS: SODIUM CHLORIDE 0.9% 1,000 ML IV SCH ×2 (00:44→12:15)
[2018-12-01] MEDS: MORPHINE 2 MG/ML CARPUJECT IVP PRN ×2 (02:21→06:28)
[2018-12-01] MEDS: SODIUM CHLORIDE FLUSH 0.9% 10 ML SYRINGE IVP PRN ×2 (02:22→06:28)
[2018-12-01 05:09] LABS: BASOPHILS % (AUTO) 0.3 %; EOSINOPHILS # (AUTO) 0.1 10^3/uL (0.0-0.7); EOSINOPHILS % (AUTO) 1.1 %; HGB - HEMOGLOBIN 12.8 g/dL (14.0-18.0); LYMPHOCYTES # (AUTO) 1.1 10^3/uL (1.5-3.5); LYMPHOCYTES % (AUTO) 17.5 %; MEAN CORPUSCULAR HEMOGLOBIN 32.9 pg (27.0-31.0); MEAN CORPUSCULAR HGB CONC 35.6 g/dL (32.0-36.0); MEAN CORPUSCULAR VOLUME 92.5 fL (80.0-94.0); MEAN PLATELET VOLUME 9.2 fL (7.4-11.4); MONOCYTES # (AUTO) 0.8 10^3/uL (0.0-1.0); MONOCYTES % (AUTO) 13.3 %; NEUTROPHILS # (AUTO) 4.1 10^3/uL (1.5-6.6); NEUTROPHILS % (AUTO) 67.2 %; PLT - PLATELET COUNT 148 10^3/uL (130-450); RED BLOOD COUNT 3.89 10^6/uL (4.70-6.10); RED CELL DISTRIBUTION WIDTH 12.8 % (12.0-15.0); WHITE BLOOD COUNT 6.2 x10^3/uL (4.8-10.8)
[2018-12-01 05:22] LABS: CALCIUM 8.9 mg/dL (8.5-10.3); CREATININE 0.6 mg/dL (0.6-1.2)
[2018-12-01] MEDS: busPIRone 5 MG TABLET PO SCH ×2 (08:38→21:28)
[2018-12-01] MEDS: THIAMINE 100 MG TABLET PO SCH (08:39)
[2018-12-01] MEDS: METOPROLOL SUCCINATE 50 MG TABLET PO SCH (08:39)
[2018-12-01] MEDS: PRENATAL VITAMIN TABLET PO SCH (08:39)
[2018-12-01] MEDS: FAMOTIDINE 20 MG TABLET PO SCH ×2 (08:40→21:27)
[2018-12-01] MEDS ORDERED: MECLIZINE 12.5 MG TABLET PO PRN (10:17)
[2018-12-01] MEDS: SODIUM CHLORIDE FLUSH 0.9% 10 ML SYRINGE IVP SCH ×3 (11:05→22:23)
[2018-12-01] MEDS: INSULIN ASPART 300 UNIT/3 ML PEN SUBQ SCH ×4 (12:00→21:20)
[2018-12-01] MEDS: PREGABALIN 25 MG CAPSULE PO SCH ×2 (14:45→21:28)
[2018-12-01] MEDS: LIQUOR 50 ML BOTTLE PO SCH (17:13)
--- NOTE | 2018-12-01 17:27 | PROVIDER PROGRESS NOTE ---
Assessment/Plan - Problem List (1) Seizure Assessment/Plan: No seizures or "spells" while here. There was a prior seizure and he was on Keppra for a while. The patient thinks Keppra made him overly sedated and it was stopped for that reason. Will transfer out of ICU. Start PT. I will try to reach [facility] at [facility] to discuss the brain MRI findings and the old Keppra history, and get further recommendationsPlan [facility] tomorrow, if no further "spells" or seizures. (2) Syncope Assessment/Plan: No "spells" while here. The "spells" have some nausea, suggesting vagal event. Orthostatic VS checks ordered. Continue telemetry. (3) Borderline diabetes mellitus Assessment/Plan: Continue cc diet and ss Insulin. (4) Alcohol abuse Assessment/Plan: Review of past ER notes and admissions showed that his old seizures may have been alcohol withdrawal. Pt on nightly 2 drinks of alcohol while here, to prevent withdrawal. consult requested to provide resources for detox and abstinence. Will provide several tablets of Librium at [facility]. 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 I reviewed all his previous ER visits and admissions and found a report describing a brain hemorrhage and he was sent from our ER to a higher level of care. The remembered that, but the patient did not, as I discussed it with them today. Also, there was a prior seizure and he was on Keppra for a while. The patient thinks Keppra made him overly sedated and it was stopped for that reason. - Current Meds Current Meds: Current Medications Generic Name Dose Route Start Last Admin Trade Name Freq PRN Reason Stop Dose Admin Acetaminophen 650 mg 11/30/18 13:14 12/01/18 14:45 Tylenol PO 650 mg Q4HR PRN Administration Pain 1 to 4 Alcohol 100 ml 11/30/18 18:00 12/01/18 17:13 Liquor PO 100 ml 1800 ELIZ Administration Buspirone HCl 15 mg 11/30/18 22:00 12/01/18 08:38 Buspar PO 15 mg BID ELIZ Administration Famotidine 20 mg 11/30/18 21:00 12/01/18 08:40 Pepcid PO 20 mg BID ELIZ Administration Insulin Aspart 1 - 5 unit 11/30/18 17:00 12/01/18 17:13 Novolog SUBQ Not Given 0800,1200,1700,2100 COUNT INCLUDES THE [facility] Protocol Lorazepam 0.5 mg 11/30/18 14:39 12/01/18 00:38 Ativan Inj (Vial) IVP 0.5 mg Q2H PRN Administration Anxiety Metoprolol Succinate 50 mg 11/30/18 21:06 12/01/18 08:39 Toprol Xl PO 50 mg DAILY ELIZ Administration Morphine Sulfate 1 mg 12/01/18 00:56 12/01/18 06:28 Morphine (Carpuject) IVP 1 mg Q2HR PRN Administration PAIN Pregabalin 75 mg 12/01/18 14:00 12/01/18 14:45 Lyrica PO 75 mg TID ELIZ Administration Multivit/Folic Acid/Iron 1 tab 12/01/18 09:00 12/01/18 08:39 Trinatal Rx 1 PO 1 tab DAILY ELIZ Administration Sodium Chloride 10 ml 11/30/18 17:00 12/01/18 17:13 Normal Saline Flush 0.9% IVP 10 ml 0100,0900,1700 ELIZ Administration Sodium Chloride 10 ml 11/30/18 13:14 12/01/18 06:28 Normal Saline Flush 0.9% IVP 10 ml PRN PRN Administration NEEDED PER PROVIDER ORDERS Thiamine HCl 100 mg 12/01/18 09:00 12/01/18 08:39 Vitamin B-1 PO 100 mg DAILY ELIZ Administration - Lab Result Fish Bone Diagrams: 12/02/18 04:30 12/02/18 04:30 - Additional Planning My Orders: My Active Orders 11/30/18 17:00 Insulin Aspart [NovoLOG] 1 - 5 unit SUBQ 0800,1200,1700,2100 Sodium Chloride Flush 0.9% [Normal Saline Flush 0.9%] 10 ml IVP 0100,0900,1700 11/30/18 18:00 Liquor 100 ml PO 1800 11/30/18 19:41 CIWA - AR Score Card [RC] PRN 11/30/18 19:42 Social Work Consult [CONS] Routine LORazepam INJ [Ativan Inj (Vial)] 2 mg IVP Q30M PRN 11/30/18 21:00 Famotidine [Pepcid] 20 mg PO BID 12/01/18 Evaluate and Treat OT [OT] Routine Evaluate and Treat PT [PT] Routine 12/01/18 08:00 Echo Transthoracic Complete [ECHO] Routine 12/01/18 09:00 Vitamin [Trinatal Rx 1] 1 tab PO DAILY Thiamine [Vitamin B-1] 100 mg PO DAILY 12/01/18 09:05 Postural [Vital Signs - Orthostatic] [RC] QSHIFT 12/01/18 10:17 Meclizine [Antivert] 25 mg PO DAILY PRN 12/01/18 14:00 Pregabalin [Lyrica] 75 mg PO TID 12/01/18 21:00 Atorvastatin [Lipitor] 20 mg PO QPM Losartan [Cozaar] 25 mg PO QPM 12/02/18 05:00 BMP - BASIC METABOLIC PANEL [CHEM] DAILYLAB CBC - COMP BLD CT W/AUTO DIFF [HEME] DAILYLAB 12/02/18 09:00 Aspirin Chewable [[place] Mick Aspirin] 81 mg PO DAILY Calcium Carb (Oyster Shell) [[place]-500] 500 mg PO DAILY Cholecalciferol [Vitamin D3] 1,000 unit PO DAILY Patient Own Med [Patient Own Medication] 1 each PO DAILY Tamsulosin [Flomax] 0.4 mg PO DAILY 12/03/18 05:00 BMP - BASIC METABOLIC PANEL [CHEM] DAILYLAB CBC - COMP BLD CT W/AUTO DIFF [HEME] DAILYLAB Subjective - Subjective Patient Reports: Resting Comfortably Objective Vital Signs: Vital Signs - 24 hr 11/30/18 11/30/18 11/30/18 18:21 21:00 22:07 Temperature 36.8 C 36.1 C L Heart Rate 100 Heart Rate [ Activity] Heart Rate [ 78 66 Monitoring electrodes] Heart Rate [ Sitting (After 1 Minute)] Heart Rate [ Sitting] Heart Rate [ Standing (After 1 Minute)] Heart Rate [ Supine] Respiratory 14 15 12 Rate Blood Pressure [Activity] Blood Pressure 158/85 H [Left Brachial artery] Blood Pressure 124/83 H [Right Brachial artery] Blood Pressure [Sitting (After 1 Minute)] Blood Pressure [Sitting] Blood Pressure [Standing ( After 1 Minute) ] Blood Pressure [Standing] Blood Pressure [Supine] O2 Saturation 100 100 100 11/30/18 12/01/18 12/01/18 23:00 00:00 01:00 Temperature 36.5 C Heart Rate Heart Rate [ Activity] Heart Rate [ 69 62 74 Monitoring electrodes] Heart Rate [ Sitting (After 1 Minute)] Heart Rate [ Sitting] Heart Rate [ Standing (After 1 Minute)] Heart Rate [ Supine] Respiratory 14 13 14 Rate Blood Pressure [Activity] Blood Pressure [Left Brachial artery] Blood Pressure 124/76 115/67 127/76 [Right Brachial artery] Blood Pressure [Sitting (After 1 Minute)] Blood Pressure [Sitting] Blood Pressure [Standing ( After 1 Minute) ] Blood Pressure [Standing] Blood Pressure [Supine] O2 Saturation 99 95 99 12/01/18 12/01/18 12/01/18 03:00 04:17 05:00 Temperature 37 C 36.5 C Heart Rate Heart Rate [ Activity] Heart Rate [ 64 67 65 Monitoring electrodes] Heart Rate [ Sitting (After 1 Minute)] Heart Rate [ Sitting] Heart Rate [ Standing (After 1 Minute)] Heart Rate [ Supine] Respiratory 11 L 12 11 L Rate Blood Pressure [Activity] Blood Pressure [Left Brachial artery] Blood Pressure 118/70 139/84 H 113/69 [Right Brachial artery] Blood Pressure [Sitting (After 1 Minute)] Blood Pressure [Sitting] Blood Pressure [Standing ( After 1 Minute) ] Blood Pressure [Standing] Blood Pressure [Supine] O2 Saturation 99 99 98 12/01/18 12/01/18 12/01/18 06:00 07:00 08:18 Temperature 36.6 C Heart Rate Heart Rate [ Activity] Heart Rate [ 63 68 68 Monitoring electrodes] Heart Rate [ Sitting (After 1 Minute)] Heart Rate [ Sitting] Heart Rate [ Standing (After 1 Minute)] Heart Rate [ Supine] Respiratory 14 12 15 Rate Blood Pressure [Activity] Blood Pressure [Left Brachial artery] Blood Pressure 130/82 H 147/81 H [Right Brachial artery] Blood Pressure [Sitting (After 1 Minute)] Blood Pressure [Sitting] Blood Pressure [Standing ( After 1 Minute) ] Blood Pressure [Standing] Blood Pressure [Supine] O2 Saturation 97 98 97 12/01/18 12/01/18 12/01/18 08:51 10:00 12:08 Temperature 36.2 C L 36.6 C Heart Rate Heart Rate [ Activity] Heart Rate [ 82 73 Monitoring electrodes] Heart Rate [ 78 Sitting (After 1 Minute)] Heart Rate [ Sitting] Heart Rate [ 72 Standing (After 1 Minute)] Heart Rate [ 76 Supine] Respiratory 14 17 Rate Blood Pressure [Activity] Blood Pressure [Left Brachial artery] Blood Pressure 122/62 157/89 H [Right Brachial artery] Blood Pressure 122/71 [Sitting (After 1 Minute)] Blood Pressure [Sitting] Blood Pressure 115/82 H [Standing ( After 1 Minute) ] Blood Pressure [Standing] Blood Pressure 141/83 H [Supine] O2 Saturation 99 100 12/01/18 12/01/18 12/01/18 12:26 12:30 15:58 Temperature 36.4 C L Heart Rate Heart Rate [ 67 Activity] Heart Rate [ 63 Monitoring electrodes] Heart Rate [ 78 Sitting (After 1 Minute)] Heart Rate [ 70 Sitting] Heart Rate [ 76 Standing (After 1 Minute)] Heart Rate [ 72 Supine] Respiratory 14 Rate Blood Pressure 138/71 H [Activity] Blood Pressure [Left Brachial artery] Blood Pressure 147/83 H [Right Brachial artery] Blood Pressure 122/71 [Sitting (After 1 Minute)] Blood Pressure 122/71 [Sitting] Blood Pressure 141/83 H [Standing ( After 1 Minute) ] Blood Pressure 141/83 H [Standing] Blood Pressure 115/82 H 115/82 H [Supine] O2 Saturation 95 Oxygen O2 Source Room air I&O (Last 24 Hrs): Intake and Output Totals x24h 11/29/18 11/30/18 12/01/18 23:59 23:59 23:59 Intake Total 3170 2318.333 Output Total 2500 2520 Balance 670 -201.667 General: Alert, Oriented x3 HEENT: Mucous membr. moist/pink Neck: Supple, No JVD Neuro: Non Focal Cardiovascular: Regular rate, No murmurs Respiratory: No respiratory distress, Breath sounds nml Abdomen: Soft Extremities: No edema - Results Results: Laboratory Results WBC 6.2 x10^3/uL (4.8-10.8) 12/01/18 04:35 RBC 3.89 10^6/uL (4.70-6.10) L 12/01/18 04:35 Hgb 12.8 g/dL (14.0-18.0) L 12/01/18 04:35 Hct 36.0 % (42.0-52.0) L 12/01/18 04:35 MCV 92.5 fL (80.0-94.0) 12/01/18 04:35 MCH 32.9 pg (27.0-31.0) H 12/01/18 04:35 MCHC 35.6 g/dL (32.0-36.0) 12/01/18 04:35 RDW 12.8 % (12.0-15.0) 12/01/18 04:35 Plt Count 148 10^3/uL (130-450) 12/01/18 04:35 MPV 9.2 fL (7.4-11.4) 12/01/18 04:35 Neut # (Auto) 4.1 10^3/uL (1.5-6.6) 12/01/18 04:35 Lymph # (Auto) 1.1 10^3/uL (1.5-3.5) L 12/01/18 04:35 [place] # (Auto) 0.8 10^3/uL (0.0-1.0) 12/01/18 04:35 Eos # (Auto) 0.1 10^3/uL (0.0-0.7) 12/01/18 04:35 Baso # (Auto) 0.0 10^3/uL (0.0-0.1) 12/01/18 04:35 Absolute Nucleated RBC 0.00 x10^3/uL 12/01/18 04:35 Nucleated RBC % 0.0 /100WBC 12/01/18 04:35 PT 12.2 secs (9.9-12.6) 11/30/18 10:35 INR 1.1 (0.8-1.2) 11/30/18 10:35 VBG pH 7.416 (7.31-7.41) H 11/30/18 14:32 VBG pCO2 38.7 mmHg (41-51) L 11/30/18 14:32 VBG pO2 43.2 mmHg (25-47) 11/30/18 14:32 VBG HCO3 24.3 mmol/L (23-28) 11/30/18 14:32 VBG Total CO2 25.5 mmol/L (24-29) 11/30/18 14:32 VBG O2 Saturation 81.2 % (60-80) H 11/30/18 14:32 VBG Base Excess 0.0 mmol/L (-2 - +2) 11/30/18 14:32 Sodium 132 mmol/L (135-145) L 12/01/18 04:35 Potassium 3.8 mmol/L (3.5-5.0) 12/01/18 04:35 Chloride 97 mmol/L (101-111) L 12/01/18 04:35 Carbon Dioxide 27 mmol/L (21-32) 12/01/18 04:35 Anion Gap 8.0 (6-13) 12/01/18 04:35 BUN 7 mg/dL (6-20) 12/01/18 04:35 Creatinine 0.6 mg/dL (0.6-1.2) 12/01/18 04:35 Estimated GFR (MDRD) 133 (>89) 12/01/18 04:35 Glucose 108 mg/dL (70-100) H 12/01/18 04:35 Glycated Hemoglobin 5.9 % (4.6-6.2) 11/30/18 Unknown Estim Average Glucose 123 (70-100) H 11/30/18 Unknown Lactic Acid 3.6 mmol/L (0.5-2.2) H* 11/30/18 10:35 Calcium 8.9 mg/dL (8.5-10.3) 12/01/18 04:35 Phosphorus 3.0 mg/dL (2.5-4.6) 12/01/18 04:35 Magnesium 2.0 mg/dL (1.7-2.8) 12/01/18 04:35 Total Bilirubin 0.8 mg/dL (0.2-1.0) 11/30/18 21:15 AST 20 IU/L (10-42) 11/30/18 21:15 ALT 19 IU/L (10-60) 11/30/18 21:15 Alkaline Phosphatase 71 IU/L (42-121) 11/30/18 21:15 Troponin I High Sens 15.7 pg/mL (2.3-19.7) 11/30/18 15:02 Total Protein 6.3 g/dL (6.7-8.2) L 11/30/18 21:15 Albumin 3.9 g/dL (3.2-5.5) 11/30/18 21:15 Globulin 2.4 g/dL (2.1-4.2) 11/30/18 21:15 Albumin/Globulin Ratio 1.6 (1.0-2.2) 11/30/18 21:15 Lipase 26 U/L (22-51) 11/30/18 10:35 TSH 1.08 uIU/mL (0.34-5.60) 11/30/18 10:35 Urine Color YELLOW 11/30/18 15:10 Urine Clarity CLEAR (CLEAR) 11/30/18 15:10 Urine pH 7.0 PH (5.0-7.5) 11/30/18 15:10 Ur Specific [place] <=1.005 (1.002-1.030) 11/30/18 15:10 Urine Protein NEGATIVE mg/dL (NEGATIVE) 11/30/18 15:10 Urine Glucose (UA) NEGATIVE mg/dL (NEGATIVE) 11/30/18 15:10 Urine Ketones 15 mg/dL (NEGATIVE) H 11/30/18 15:10 Urine Occult Blood NEGATIVE (NEGATIVE) 11/30/18 15:10 Urine Nitrite NEGATIVE (NEGATIVE) 11/30/18 15:10 Urine Bilirubin NEGATIVE (NEGATIVE) 11/30/18 15:10 Urine Urobilinogen 1 (NORMAL) E.U./dL (NORMAL) 11/30/18 15:10 Ur Leukocyte Esterase NEGATIVE (NEGATIVE) 11/30/18 15:10 Ur Microscopic Review NOT INDICATED 11/30/18 15:10 Urine Culture Comments NOT INDICATED 11/30/18 15:10 Nasal Screen MRSA (PCR) NEGATIVE (NEGATIVE) 11/30/18 13:55 Urine Opiates Screen NEGATIVE (NEGATIVE) 11/30/18 15:10 Ur Oxycodone Screen NEGATIVE (NEGATIVE) 11/30/18 15:10 Urine Methadone Screen NEGATIVE (NEGATIVE) 11/30/18 15:10 Ur Propoxyphene Screen NEGATIVE (NEGATIVE) 11/30/18 15:10 Ur Barbiturates Screen NEGATIVE (NEGATIVE) 11/30/18 15:10 Ur Tricyclics Screen NEGATIVE (NEGATIVE) 11/30/18 15:10 Ur Phencyclidine Scrn NEGATIVE (NEGATIVE) 11/30/18 15:10 Ur Amphetamine Screen NEGATIVE (NEGATIVE) 11/30/18 15:10 U Methamphetamines Scrn NEGATIVE (NEGATIVE) 11/30/18 15:10 U Benzodiazepines Scrn NEGATIVE (NEGATIVE) 11/30/18 15:10 Urine Cocaine Screen NEGATIVE (NEGATIVE) 11/30/18 15:10 U Cannabinoids Screen NEGATIVE (NEGATIVE) 11/30/18 15:10 Ethyl Alcohol < 5.0 mg/dL 11/30/18 10:35 Serum Ketones NEGATIVE (NEGATIVE) 11/30/18 10:35
[2018-12-01] MEDS ORDERED: busPIRone 5 MG TABLET PO SCH (21:00)
[2018-12-01] MEDS: ATORVASTATIN 10 MG TABLET PO SCH (21:27)
[2018-12-01] MEDS: LOSARTAN 50 MG TABLET PO SCH (21:27)
[2018-12-02 05:30] LABS: BASOPHILS % (AUTO) 0.3 %; EOSINOPHILS # (AUTO) 0.1 10^3/uL (0.0-0.7); EOSINOPHILS % (AUTO) 1.5 %; HGB - HEMOGLOBIN 13.1 g/dL (14.0-18.0); LYMPHOCYTES # (AUTO) 0.9 10^3/uL (1.5-3.5); LYMPHOCYTES % (AUTO) 15.2 %; MEAN CORPUSCULAR HEMOGLOBIN 33.6 pg (27.0-31.0); MEAN CORPUSCULAR HGB CONC 35.5 g/dL (32.0-36.0); MEAN CORPUSCULAR VOLUME 94.6 fL (80.0-94.0); MEAN PLATELET VOLUME 9.3 fL (7.4-11.4); MONOCYTES # (AUTO) 0.7 10^3/uL (0.0-1.0); NEUTROPHILS # (AUTO) 4.1 10^3/uL (1.5-6.6); NEUTROPHILS % (AUTO) 70.2 %; PLT - PLATELET COUNT 151 10^3/uL (130-450); RED CELL DISTRIBUTION WIDTH 12.9 % (12.0-15.0); WHITE BLOOD COUNT 5.9 x10^3/uL (4.8-10.8)
[2018-12-02 05:36] LABS: CREATININE 0.6 mg/dL (0.6-1.2)
[2018-12-02] MEDS: PREGABALIN 25 MG CAPSULE PO SCH ×3 (06:32→21:22)
--- NOTE | 2018-12-02 08:38 | Discharge Plan ---
Discharge Plan Problem Reviewed?: Yes Disposition: Home, Self Care Condition: Stable Prescriptions: chlordiazePOXIDE [Librium] 5 mg PO BID PRN #6 capsule PRN Reason: Alcohol Withdrawal Divalproex Sodium [Depakote] 500 mg PO TID #90 tablet. Thiamine [Vitamin B-1] 100 mg PO DAILY #30 tablet Diet: Diabetic Activity Restrictions: Activity as Tolerated Shower Restrictions: No Driving Restrictions: Yes (NO DRIVING A VEHICLE UNTIL CLEARED BY MD TO RESUME) Instruction Topics: Valproic Acid Divalproex Sodium injection, Epilepsy How Seizures Affect Body, Epilepsy Meds, Syncope, First Aid Seizures, ED Fainting Unkn Cause Health Concerns: Admitted after fainting and having a seizure. Brain imaging is abnormal, after previous brain hemorrhage. Neurology advised new anti-seizure medications. Plan of Treatment: Start the new Depakote, prescribed for seizures. You need a referral to a Neurologist for follow-up as well. NO DRIVING ALLOWED. Resume all your pre-hospital medications. Alcohol cessation resources were provided for you. Several tablets of Librium have been prescribed for you to use for dealing with any alcohol withdrawal and a prescription for Thiamine (for deficiency). Care Goals: Feeling better without "spells". Stop using alcohol. Assessment: The patient is agreeable with the plan. Additional Instructions or Follow Up instructions: See your PCP in 5-10 days for hospital follow-up. You need a referral to a Neurologist. If you have new or worsening symptoms, call your PCP for advice or come to the ER. No Smoking: If you smoke, Please STOP! Call for help. Follow-up with: Jorge Luis Foley MD [Primary Care Provider] -
[2018-12-02] MEDS ORDERED: FOLIC ACID 1 MG TABLET PO SCH (09:00)
[2018-12-02] MEDS ORDERED: NON FORMULARY MED (Multivitamin [Multi-Vitamin Daily] 1 EACH) PO SCH (09:00)
[2018-12-02] MEDS ORDERED: METOPROLOL SUCCINATE 50 MG TABLET PO SCH (09:00)
[2018-12-02] MEDS: INSULIN ASPART 300 UNIT/3 ML PEN SUBQ SCH ×4 (09:25→21:31)
[2018-12-02] MEDS: busPIRone 5 MG TABLET PO SCH ×2 (09:27→21:23)
[2018-12-02] MEDS: ASPIRIN CHEW 81 MG TABLET PO SCH (09:27)
[2018-12-02] MEDS: FAMOTIDINE 20 MG TABLET PO SCH ×2 (09:28→21:24)
[2018-12-02] MEDS: CALCIUM CARB (OYSTER SHELL) 500 MG TABLET PO SCH (09:28)
[2018-12-02] MEDS: CHOLECALCIFEROL 1,000 UNIT TABLET PO SCH (09:28)
[2018-12-02] MEDS: THIAMINE 100 MG TABLET PO SCH (09:28)
[2018-12-02] MEDS: PRENATAL VITAMIN TABLET PO SCH (09:28)
[2018-12-02] MEDS: TAMSULOSIN 0.4 MG CAPSULE PO SCH (09:28)
[2018-12-02] MEDS: SODIUM CHLORIDE FLUSH 0.9% 10 ML SYRINGE IVP SCH ×2 (09:31→19:21)
[2018-12-02] MEDS: METOPROLOL SUCCINATE 50 MG TABLET PO SCH (09:31)
[2018-12-02] MEDS: UBIDECARENONE 100 MG PO SCH (09:34)
--- NOTE | 2018-12-02 11:49 | PROVIDER PROGRESS NOTE ---
Assessment/Plan - Problem List (1) Acute delirium Assessment/Plan: The patient did get Ativan 0.25 mg x1 last night for anxiety, not for CIWA protocol. This a.m. he stated that he didn't remember the event that caused this admission, cannot follow instructions from his RN, and when he spoke to his on the phone, he commented that his being here is all her fault, and that he has been "out and about" while here and he didn't know he was in a hospital. I evaluated his memory with some questions and he did poorly, but at that point, he did know he was in the hospital and did remember meeting me before. Will stop Ativan, as it may be lingering. Will decrease the amount of alcohol po at dinner time. He is not safe to [facility] today. (2) Seizure Assessment/Plan: I spoke to Dr Chencho Yee, Neurology at [facility], who felt that the brain MRI does show a potential focus for a seizure with the finding in the left temporal lobe and the old bleed. He advised starting an anticonvulsant using Depakote iv loading at 20 mg/kg then oral Depakote maintenance dose of 15 mg/kg in 3 divied doses a day. He advised watching the man as an inpatient to assure he comes back to his baseline, since he is encephalopathic today. I explained the plan to the patient and . (3) Syncope Assessment/Plan: I reviewed the "spells" as I presented the case to the Neurologist and he felt that they may be parts of these seizures. (4) Borderline diabetes mellitus Assessment/Plan: Cont inue cc diet and fingerstick checks with coverage. (5) Alcohol abuse Assessment/Plan: Alcohol intake may lower his seizure threshold. Will have SW see for resources to stop. Will stop Ativan and decrease the alcohol order. Thiamine daily has been ordered. 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 - Current Meds Current Meds: Current Medications Generic Name Dose Route Start Last Admin Trade Name Freq PRN Reason Stop Dose Admin Acetaminophen 650 mg 11/30/18 13:14 12/01/18 14:45 Tylenol PO 650 mg Q4HR PRN Administration Pain 1 to 4 Aspirin 81 mg 12/02/18 09:00 12/02/18 09:27 [facility] Mick Aspirin PO 81 mg DAILY COUNT INCLUDES THE [facility] Administration Atorvastatin Calcium 20 mg 12/01/18 21:00 12/01/18 21:27 Lipitor PO 20 mg QPM ELIZ Administration Buspirone HCl 15 mg 11/30/18 22:00 12/02/18 09:27 Buspar PO 15 mg BID ELIZ Administration Calcium Carbonate/Glycine 500 mg 12/02/18 09:00 12/02/18 09:28 Oysco-500 PO 500 mg DAILY COUNT INCLUDES THE [facility] Administration Cholecalciferol 1,000 unit 12/02/18 09:00 12/02/18 09:28 Vitamin D3 PO 1,000 unit DAILY COUNT INCLUDES THE [facility] Administration Famotidine 20 mg 11/30/18 21:00 12/02/18 09:28 Pepcid PO 20 mg BID COUNT INCLUDES THE [facility] Administration Insulin Aspart 1 - 5 unit 11/30/18 17:00 12/02/18 09:25 Novolog SUBQ Not Given 0800,1200,1700,2100 COUNT INCLUDES THE [facility] Protocol Losartan Potassium 25 mg 12/01/18 21:00 12/01/18 21:27 Cozaar PO 25 mg QPM COUNT INCLUDES THE [facility] Administration Metoprolol Succinate 50 mg 11/30/18 21:06 12/02/18 09:31 Toprol Xl PO 50 mg DAILY COUNT INCLUDES THE [facility] Administration Morphine Sulfate 1 mg 12/01/18 00:56 12/01/18 06:28 Morphine (Carpuject) IVP 1 mg Q2HR PRN Administration PAIN Patient Own Med ( 1 each 12/02/18 09:00 12/02/18 09:34 Ubidecarenone [Coq- PO Not Given 10] 100 Mg) DAILY COUNT INCLUDES THE [facility] Pregabalin 75 mg 12/01/18 14:00 12/02/18 06:32 Lyrica PO 75 mg TID COUNT INCLUDES THE [facility] Administration Multivit/Folic Acid/Iron 1 tab 12/01/18 09:00 12/02/18 09:28 Trinatal Rx 1 PO 1 tab DAILY COUNT INCLUDES THE [facility] Administration Sodium Chloride 10 ml 11/30/18 17:00 12/02/18 09:31 Normal Saline Flush 0.9% IVP 10 ml 0100,0900,1700 ELIZ Administration Sodium Chloride 10 ml 11/30/18 13:14 12/01/18 06:28 Normal Saline Flush 0.9% IVP 10 ml PRN PRN Administration NEEDED PER PROVIDER ORDERS Tamsulosin HCl 0.4 mg 12/02/18 09:00 12/02/18 09:28 Flomax PO 0.4 mg DAILY ELIZ Administration Thiamine HCl 100 mg 12/01/18 09:00 12/02/18 09:28 Vitamin B-1 PO 100 mg DAILY ELIZ Administration - Lab Result Fish Bone Diagrams: 12/02/18 04:30 12/02/18 04:30 - Additional Planning My Orders: My Active Orders 12/01/18 14:00 Pregabalin [Lyrica] 75 mg PO TID 12/01/18 21:00 Atorvastatin [Lipitor] 20 mg PO QPM Losartan [Cozaar] 25 mg PO QPM 12/02/18 09:00 Aspirin Chewable [[facility] Mick Aspirin] 81 mg PO DAILY Calcium Carb (Oyster Shell) [Oysco-500] 500 mg PO DAILY Cholecalciferol [Vitamin D3] 1,000 unit PO DAILY Patient Own Med [Patient Own Medication] 1 each PO DAILY Tamsulosin [Flomax] 0.4 mg PO DAILY 12/02/18 18:00 Liquor 50 ml PO 1800 12/03/18 05:00 BMP - BASIC METABOLIC PANEL [CHEM] DAILYLAB CBC - COMP BLD CT W/AUTO DIFF [HEME] DAILYLAB Objective Vital Signs: Vital Signs - 24 hr 12/01/18 12/01/18 12/01/18 12:08 12:26 12:30 Temperature 36.6 C Heart Rate [ 67 Activity] Heart Rate [ 73 Monitoring electrodes] Heart Rate [ 78 Sitting (After 1 Minute)] Heart Rate [ 70 Sitting] Heart Rate [ 76 Standing (After 1 Minute)] Heart Rate [ 72 Supine] Respiratory 17 Rate Blood Pressure 138/71 H [Activity] Blood Pressure 157/89 H [Right Brachial artery] Blood Pressure 122/71 [Sitting (After 1 Minute)] Blood Pressure 122/71 [Sitting] Blood Pressure 141/83 H [Standing ( After 1 Minute) ] Blood Pressure 141/83 H [Standing] Blood Pressure 115/82 H 115/82 H [Supine] O2 Saturation 100 12/01/18 12/01/18 12/02/18 15:58 21:00 01:00 Temperature 36.4 C L 36.5 C 36.6 C Heart Rate [ Activity] Heart Rate [ 63 72 62 Monitoring electrodes] Heart Rate [ Sitting (After 1 Minute)] Heart Rate [ Sitting] Heart Rate [ Standing (After 1 Minute)] Heart Rate [ Supine] Respiratory 14 18 12 Rate Blood Pressure [Activity] Blood Pressure 147/83 H 160/93 H [Right Brachial artery] Blood Pressure [Sitting (After 1 Minute)] Blood Pressure [Sitting] Blood Pressure [Standing ( After 1 Minute) ] Blood Pressure [Standing] Blood Pressure [Supine] O2 Saturation 95 98 98 12/02/18 12/02/18 12/02/18 02:00 06:00 09:00 Temperature 36.7 C Heart Rate [ Activity] Heart Rate [ 56 L 70 Monitoring electrodes] Heart Rate [ 69 Sitting (After 1 Minute)] Heart Rate [ Sitting] Heart Rate [ 66 Standing (After 1 Minute)] Heart Rate [ 63 Supine] Respiratory 13 15 Rate Blood Pressure [Activity] Blood Pressure 160/119 H 97/81 H [Right Brachial artery] Blood Pressure 162/92 H [Sitting (After 1 Minute)] Blood Pressure [Sitting] Blood Pressure 148/85 H [Standing ( After 1 Minute) ] Blood Pressure [Standing] Blood Pressure 150/86 H [Supine] O2 Saturation 99 100 12/02/18 09:27 Temperature Heart Rate [ Activity] Heart Rate [ 81 Monitoring electrodes] Heart Rate [ Sitting (After 1 Minute)] Heart Rate [ Sitting] Heart Rate [ Standing (After 1 Minute)] Heart Rate [ Supine] Respiratory Rate Blood Pressure [Activity] Blood Pressure 130/78 [Right Brachial artery] Blood Pressure [Sitting (After 1 Minute)] Blood Pressure [Sitting] Blood Pressure [Standing ( After 1 Minute) ] Blood Pressure [Standing] Blood Pressure [Supine] O2 Saturation Oxygen O2 Source Room air I&O (Last 24 Hrs): Intake and Output Totals x24h 11/30/18 12/01/18 12/02/18 23:59 23:59 23:59 Intake Total 3170 4038.333 520 Output Total 2500 3170 1675 Balance 670 86.333 -7036 General: Alert, Other (Oriented to place and person, not time) HEENT: Other (Scalp laceration clean, male pattern baldness) Neck: Supple, No JVD Neuro: Disoriented Cardiovascular: Regular rate, No murmurs Abdomen: Soft Extremities: No edema - Results Results: Laboratory Results WBC 5.9 x10^3/uL (4.8-10.8) 12/02/18 04:30 RBC 3.90 10^6/uL (4.70-6.10) L 12/02/18 04:30 Hgb 13.1 g/dL (14.0-18.0) L 12/02/18 04:30 Hct 36.9 % (42.0-52.0) L 12/02/18 04:30 MCV 94.6 fL (80.0-94.0) H 12/02/18 04:30 MCH 33.6 pg (27.0-31.0) H 12/02/18 04:30 MCHC 35.5 g/dL (32.0-36.0) 12/02/18 04:30 RDW 12.9 % (12.0-15.0) 12/02/18 04:30 Plt Count 151 10^3/uL (130-450) 12/02/18 04:30 MPV 9.3 fL (7.4-11.4) 12/02/18 04:30 Neut # (Auto) 4.1 10^3/uL (1.5-6.6) 12/02/18 04:30 Lymph # (Auto) 0.9 10^3/uL (1.5-3.5) L 12/02/18 04:30 [place] # (Auto) 0.7 10^3/uL (0.0-1.0) 12/02/18 04:30 Eos # (Auto) 0.1 10^3/uL (0.0-0.7) 12/02/18 04:30 Baso # (Auto) 0.0 10^3/uL (0.0-0.1) 12/02/18 04:30 Absolute Nucleated RBC 0.00 x10^3/uL 12/02/18 04:30 Nucleated RBC % 0.0 /100WBC 12/02/18 04:30 PT 12.2 secs (9.9-12.6) 11/30/18 10:35 INR 1.1 (0.8-1.2) 11/30/18 10:35 VBG pH 7.416 (7.31-7.41) H 11/30/18 14:32 VBG pCO2 38.7 mmHg (41-51) L 11/30/18 14:32 VBG pO2 43.2 mmHg (25-47) 11/30/18 14:32 VBG HCO3 24.3 mmol/L (23-28) 11/30/18 14:32 VBG Total CO2 25.5 mmol/L (24-29) 11/30/18 14:32 VBG O2 Saturation 81.2 % (60-80) H 11/30/18 14:32 VBG Base Excess 0.0 mmol/L (-2 - +2) 11/30/18 14:32 Sodium 133 mmol/L (135-145) L 12/02/18 04:30 Potassium 3.9 mmol/L (3.5-5.0) 12/02/18 04:30 Chloride 99 mmol/L (101-111) L 12/02/18 04:30 Carbon Dioxide 27 mmol/L (21-32) 12/02/18 04:30 Anion Gap 7.0 (6-13) 12/02/18 04:30 BUN 9 mg/dL (6-20) 12/02/18 04:30 Creatinine 0.6 mg/dL (0.6-1.2) 12/02/18 04:30 Estimated GFR (MDRD) 133 (>89) 12/02/18 04:30 Glucose 112 mg/dL (70-100) H 12/02/18 04:30 Glycated Hemoglobin 5.9 % (4.6-6.2) 11/30/18 Unknown Estim Average Glucose 123 (70-100) H 11/30/18 Unknown Lactic Acid 3.6 mmol/L (0.5-2.2) H* 11/30/18 10:35 Calcium 9.0 mg/dL (8.5-10.3) 12/02/18 04:30 Phosphorus 3.0 mg/dL (2.5-4.6) 12/01/18 04:35 Magnesium 2.0 mg/dL (1.7-2.8) 12/01/18 04:35 Total Bilirubin 0.8 mg/dL (0.2-1.0) 11/30/18 21:15 AST 20 IU/L (10-42) 11/30/18 21:15 ALT 19 IU/L (10-60) 11/30/18 21:15 Alkaline Phosphatase 71 IU/L (42-121) 11/30/18 21:15 Troponin I High Sens 15.7 pg/mL (2.3-19.7) 11/30/18 15:02 Total Protein 6.3 g/dL (6.7-8.2) L 11/30/18 21:15 Albumin 3.9 g/dL (3.2-5.5) 11/30/18 21:15 Globulin 2.4 g/dL (2.1-4.2) 11/30/18 21:15 Albumin/Globulin Ratio 1.6 (1.0-2.2) 11/30/18 21:15 Lipase 26 U/L (22-51) 11/30/18 10:35 TSH 1.08 uIU/mL (0.34-5.60) 11/30/18 10:35 Urine Color YELLOW 11/30/18 15:10 Urine Clarity CLEAR (CLEAR) 11/30/18 15:10 Urine pH 7.0 PH (5.0-7.5) 11/30/18 15:10 Ur Specific [place] <=1.005 (1.002-1.030) 11/30/18 15:10 Urine Protein NEGATIVE mg/dL (NEGATIVE) 11/30/18 15:10 Urine Glucose (UA) NEGATIVE mg/dL (NEGATIVE) 11/30/18 15:10 Urine Ketones 15 mg/dL (NEGATIVE) H 11/30/18 15:10 Urine Occult Blood NEGATIVE (NEGATIVE) 11/30/18 15:10 Urine Nitrite NEGATIVE (NEGATIVE) 11/30/18 15:10 Urine Bilirubin NEGATIVE (NEGATIVE) 11/30/18 15:10 Urine Urobilinogen 1 (NORMAL) E.U./dL (NORMAL) 11/30/18 15:10 Ur Leukocyte Esterase NEGATIVE (NEGATIVE) 11/30/18 15:10 Ur Microscopic Review NOT INDICATED 11/30/18 15:10 Urine Culture Comments NOT INDICATED 11/30/18 15:10 Nasal Screen MRSA (PCR) NEGATIVE (NEGATIVE) 11/30/18 13:55 Urine Opiates Screen NEGATIVE (NEGATIVE) 11/30/18 15:10 Ur Oxycodone Screen NEGATIVE (NEGATIVE) 11/30/18 15:10 Urine Methadone Screen NEGATIVE (NEGATIVE) 11/30/18 15:10 Ur Propoxyphene Screen NEGATIVE (NEGATIVE) 11/30/18 15:10 Ur Barbiturates Screen NEGATIVE (NEGATIVE) 11/30/18 15:10 Ur Tricyclics Screen NEGATIVE (NEGATIVE) 11/30/18 15:10 Ur Phencyclidine Scrn NEGATIVE (NEGATIVE) 11/30/18 15:10 Ur Amphetamine Screen NEGATIVE (NEGATIVE) 11/30/18 15:10 U Methamphetamines Scrn NEGATIVE (NEGATIVE) 11/30/18 15:10 U Benzodiazepines Scrn NEGATIVE (NEGATIVE) 11/30/18 15:10 Urine Cocaine Screen NEGATIVE (NEGATIVE) 11/30/18 15:10 U Cannabinoids Screen NEGATIVE (NEGATIVE) 11/30/18 15:10 Ethyl Alcohol < 5.0 mg/dL 11/30/18 10:35 Serum Ketones NEGATIVE (NEGATIVE) 11/30/18 10:35
[2018-12-02] MEDS ORDERED: VALPROATE IV ONE (14:00)
[2018-12-02] MEDS ORDERED: SODIUM CHLORIDE 0.9% IV ONE (14:00)
[2018-12-02] MEDS: SODIUM CHLORIDE FLUSH 0.9% 10 ML SYRINGE IVP PRN (16:19)
[2018-12-02] MEDS: ACETAMINOPHEN 325 MG TABLET PO PRN (16:23)
[2018-12-02] MEDS ORDERED: LIQUOR 50 ML BOTTLE PO SCH (18:00)
[2018-12-02] MEDS: ATORVASTATIN 10 MG TABLET PO SCH (21:23)
[2018-12-02] MEDS: LOSARTAN 50 MG TABLET PO SCH (21:24)
[2018-12-03] MEDS: SODIUM CHLORIDE FLUSH 0.9% 10 ML SYRINGE IVP SCH (01:07)
[2018-12-03] MEDS: ACETAMINOPHEN 325 MG TABLET PO PRN (01:07)
[2018-12-03 04:40] LABS: BASOPHILS % (AUTO) 0.4 %; EOSINOPHILS # (AUTO) 0.2 10^3/uL (0.0-0.7); EOSINOPHILS % (AUTO) 2.4 %; HGB - HEMOGLOBIN 12.6 g/dL (14.0-18.0); LYMPHOCYTES # (AUTO) 1.4 10^3/uL (1.5-3.5); MEAN CORPUSCULAR HEMOGLOBIN 33.7 pg (27.0-31.0); MEAN CORPUSCULAR HGB CONC 35.6 g/dL (32.0-36.0); MEAN CORPUSCULAR VOLUME 94.7 fL (80.0-94.0); MEAN PLATELET VOLUME 8.9 fL (7.4-11.4); MONOCYTES # (AUTO) 0.7 10^3/uL (0.0-1.0); MONOCYTES % (AUTO) 10.9 %; NEUTROPHILS # (AUTO) 4.4 10^3/uL (1.5-6.6); NEUTROPHILS % (AUTO) 64.9 %; PLT - PLATELET COUNT 154 10^3/uL (130-450); RED BLOOD COUNT 3.74 10^6/uL (4.70-6.10); RED CELL DISTRIBUTION WIDTH 13.1 % (12.0-15.0); WHITE BLOOD COUNT 6.7 x10^3/uL (4.8-10.8)
[2018-12-03 04:48] LABS: CALCIUM 9.2 mg/dL (8.5-10.3); CREATININE 0.7 mg/dL (0.6-1.2)
[2018-12-03] MEDS: PREGABALIN 25 MG CAPSULE PO SCH ×2 (06:30→14:03)
[2018-12-03] MEDS: INSULIN ASPART 300 UNIT/3 ML PEN SUBQ SCH ×2 (08:40→12:08)
[2018-12-03] MEDS: DIVALPROEX DR 250 MG TABLET PO SCH ×2 (08:41→14:04)
[2018-12-03] MEDS: busPIRone 5 MG TABLET PO SCH (08:41)
[2018-12-03] MEDS: PRENATAL VITAMIN TABLET PO SCH (08:42)
[2018-12-03] MEDS: CHOLECALCIFEROL 1,000 UNIT TABLET PO SCH (08:42)
[2018-12-03] MEDS: METOPROLOL SUCCINATE 50 MG TABLET PO SCH (08:43)
[2018-12-03] MEDS: CALCIUM CARB (OYSTER SHELL) 500 MG TABLET PO SCH (08:43)
[2018-12-03] MEDS: TAMSULOSIN 0.4 MG CAPSULE PO SCH (08:43)
[2018-12-03] MEDS: FAMOTIDINE 20 MG TABLET PO SCH (08:43)
[2018-12-03] MEDS: THIAMINE 100 MG TABLET PO SCH (08:44)
[2018-12-03] MEDS: UBIDECARENONE 100 MG PO SCH (08:44)
[2018-12-03] MEDS: ASPIRIN CHEW 81 MG TABLET PO SCH (08:44)
[2018-12-03 15:21] VITALS: BP 160/87
[2018-12-03] MEDS ORDERED: LIQUOR 50 ML BOTTLE PO SCH (18:00)
--- NOTE | 2018-12-05 15:45 | DISCHARGE SUMMARY ---
Discharge Summary Admit Date: 11/30/18 Discharge Date: 12/03/18 Discharging Provider: Dr Asha Noonan Primary Care Provider: Dr Jorge Luis Foley Code Status: Attempt Resuscitation Condition at Discharge: Stable Discharge Disposition: 01 Home, Self Care - DIAGNOSES Admission Diagnoses: 1) Seizure 2) Syncope 3) Tachycardia 4) Lactic acidosis 5) Elevated anion gap 6) Borderline DM 7) Hyponatremia 8) Alcohol abuse 9) Rib pain after a fall at home Discharge Diagnoses with Status of Each Condition: See below - HPI History of Present Illness: This is a 72 y/o white male with a history of borderline diabetes, HTN and intermittent alcohol abuse with 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 He had been in alcohol rehab earlier this year, but resumed heavy alcohol intake about 3 weeks ago, while his was out of town helping a friend with cancer. He described a 1 year history of "spells" which happened nearly daily, lasted 1 minute, caused dizziness and nausea and were twice associated with syncope: once when he was sitting on a couch and another while he was a passenger in a car and the was driving. The added that he was often confused and speaking gibberish after a severe "spell". He was sent to a [employer] to evaluate the "spells", and wore a nurse monitoring, the results of which were not back. The patient presented by ambulance when he had an event in his garage: he had started to feel the typical dizziness, the heard him moaning and ran out to witness him fall then have a seizure. In the ER, he had brain and spine CT imaging which were negative, serum sodium of 124 and he was admitted to the ICU for management. - CONSULTS | PROCEDURES Consultations: Discussed with Neurologist, Dr Chencho Yee, [facility] - HOSPITAL COURSE Hospital Course: 1) Acute delirium On 12/02/18, the patient was confused; he spoke to his by phone after breakfast thinking he was elsewhere and told her he "was out and about" and that "she had alot of explaining to do about what got him to this place". He stated that he didn't remember the event that caused this admission, and he could not follow instructions from his RN. He told the Hospitalist that he couldn't believe that he was being evaluated for a seizure, and that maybe his made it up. The Hospitalist evaluated his memory with some questions and he did poorly. The patient did get Ativan 0.25 mg the previous night for anxiety, but not for CIWA protocol. It was stopped. Neurology was consulted by phone. (2) Seizure His work-up included a brain MRI which showed no acute findings such as infarct, midline shift or acute hemorrhage, but significant chronic findings: "1) Left hippocampal/mesial temporal sclerosis. 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 This is from a known intraparenchymal hemorrhage with intraventricular extension in 2013. 3) Chronic microvascular angiopathy." This Hospitalist spoke to Dr Chencho Yee, Neurologist at [facility], and reviewed the case, describing the 1 year of "spells" and syncope, the seizure and delirium on day #3. He felt that the brain MRI did show a potential focus for a seizure with the finding in the left temporal lobe and the old bleed. He thought the "spells" could be seizures with post-ictal confusion, of which we may have witnessed the delirium (above). The patient had reported being on Keppra for "alcohol withdrawal seizures" in the past, which was stopped due to over-sedation. The Neurologist advised starting an anticonvulsant using Depakote iv loading at 20 mg/kg then oral Depakote maintenance dose of 15 mg/kg/day, given in 3 divided doses. The patient got the 2 gm loading dose iv and the following day he was monitored after 2 oral doses of 500 mg and was discharged that following day with a strong recommendation to have Neurology follow-up. He was advised to stop alcohol intake. (3) Syncope This patient had started evaluation by a [employer], and wore a heart monitor for 2 days before this admission; the results were not back, but he reported that he had had no "spells" those 2 days. Here, he was not orthostatic. An Echo was done during this admission and showed LVH, normal LV systolic function, biatrial enlargement, RV enlargement with normal RV function and normal PA pressure. I reviewed the "spells" as I presented the case to the Neurologist and he felt that they may be parts of his seizures. (4) Borderline diabetes mellitus He was on a carb-controlled diet and fingerstick glu checks with coverage. His A1c was indeed normal at 5.9. (5) Alcohol abuse He admitted to hiding alcohol drinking from his . He was given 100 ml the first evening, then 50 ml of alcohol with each dinner and was prescribed several pills of Librium to use at home, to remain off alcohol after discharge. Thiamine daily was given and he was discharged with a prescription for that. The alcohol intake may have lowered his seizure threshold. (6) Lactic acidosis This was felt to be from alcoholic lactic acidosis. (7) Hyponatremia This may have contributed to confusion. He received iv hydration with normal saline iv fluids. The serum sodium improved from 124>> 132>> 134 at discharge. (8) Fall from ground level He had imaging done in the ER of his brain abd spine, which were negative. He did have a small skin tear of tge scalp, whic was clean and was bandaged. He had complaints of high, left lateral chest wall pain. A rib series was done and showed no rib fractures and no pneumothorax. (9) Hx of stroke due to intracerebral hemorrhage The brain MRI reported hemosiderin present, consistent with an old hemorrhage, which was compared to remote imaging done here in 2012, when he was diagnosed with a brain bleed and had been airlifted to [place]. The patient had no recollection of that history. His did remember it, and she reported him having a Neurologist briefly then. There were no records in this EMR regarding the sequelae. (10) HTN His blood pressure was under good control on his home BP meds of Losartan and Toprol XL. - ALLERGIES Allergies/Adverse Reactions: Allergies Allergy/AdvReac Type Severity Reaction Status Date / Time celecoxib [From Celebrex] Allergy Severe swelling & Verified 10/03/16 12:31 hives simvastatin [From Zocor] Allergy Unknown unknown Verified 10/03/16 12:31 - MEDICATIONS Home Medications: Ambulatory Orders Medication Instructions Recorded Confirmed RX: Calcium Carbonate/Vitamin D3 1 each PO DAILY 11/19/12 11/30/18 [Calcium 600 + Vit D Caplet] RX: Meclizine [Antivert] 25 mg PO DAILY PRN 11/19/12 11/30/18 RX: Metoprolol Succinate [Toprol 50 mg PO DAILY 11/19/12 11/30/18 Xl] RX: Multivitamin [Multi-Vitamin 1 each PO DAILY 11/19/12 11/30/18 Daily] RX: Omeprazole [PriLOSEC] 20 mg PO DAILY PRN 11/19/12 11/30/18 RX: Ubidecarenone [Coq-10] 100 mg PO DAILY 11/19/12 11/30/18 RX: busPIRone [Buspar] 15 mg PO BID 11/19/12 11/30/18 RX: Folic Acid 1 mg PO DAILY 07/05/14 11/30/18 RX: Aspirin 81 mg PO DAILY 11/30/18 11/30/18 RX: Atorvastatin Calcium 20 mg PO QPM 11/30/18 11/30/18 RX: Naproxen Sodium [Aleve] 220 mg PO Q12H PRN 11/30/18 11/30/18 RX: Pregabalin [Lyrica] 75 mg PO TID 11/30/18 11/30/18 RX: Tamsulosin HCl [Flomax] 0.4 mg PO DAILY 11/30/18 11/30/18 RX: Valsartan 80 mg PO QPM 11/30/18 11/30/18 RX: cloNIDine HCl [Clonidine HCl] 0.1 mg PO PRN PRN 11/30/18 11/30/18 RX: Thiamine [Vitamin B-1] 100 mg PO DAILY #30 tablet 12/02/18 chlordiazePOXIDE [Librium] 5 mg PO BID PRN #6 capsule 12/02/18 Divalproex Sodium [Depakote] 500 mg PO TID #90 tablet. 12/03/18 - PHYSICAL EXAM AT DISCHARGE General Appearance: positive: No acute distress, Alert Eyes Bilateral: positive: Normal inspection ENT: positive: No signs of dehydration Neck: positive: Nml inspection, No JVD Respiratory: positive: No respiratory distress, Breath sounds nml Cardiovascular: positive: Regular rate & rhythm, No murmur Abdomen: positive: Non-tender, No distention Skin: positive: Color nml Extremities: positive: No pedal edema Neurologic/Psychiatric: positive: Oriented x3, Motor nml, Other (Numbness of feet. Poor memory.) - LABS Result Diagrams: 12/03/18 04:26 12/03/18 04:26 - DIAGNOSTIC IMAGING Diagnostic Imaging Results: Final report reviewed - FOLLOW UP Follow Up: Advised to see PCP in 5-10 days. Advised to establish with a Neurologist (referral probably needed from PCP). - TIME SPENT Time Spent in Discharge (Minutes): 80
== END 2018-12-03 15:25 | disposition home or self-care (01) | DRG 101 ==
LOC: EDUNIT# → ED 09:45 → ICU 13:14
PROVIDERS: ADMIT Internal Medicine; ATTEND Internal Medicine
DX: R56.9 Unspecified convulsions (principal); G93.40 Encephalopathy, unspecified; E87.2 Acidosis; E87.1 Hypo-osmolality and hyponatremia; F10.10 Alcohol abuse, uncomplicated; E78.00 Pure hypercholesterolemia, unspecified; E86.9 Volume depletion, unspecified; G47.30 Sleep apnea, unspecified; K21.9 Gastro-esophageal reflux disease without esophagitis; N40.0 Benign prostatic hyperplasia without lower urinary tract symptoms; H91.90 Unspecified hearing loss, unspecified ear; R55 Syncope and collapse; M19.90 Unspecified osteoarthritis, unspecified site; F40.240 Claustrophobia; Z96.649 Presence of unspecified artificial hip joint; I69.198 Other sequelae of nontraumatic intracerebral hemorrhage; Z79.891 Long term (current) use of opiate analgesic; G93.89 Other specified disorders of brain; R07.81 Pleurodynia; S00.01XA Abrasion of scalp, initial encounter; W18.30XA Fall on same level, unspecified, initial encounter; Y92.008 Other place in unspecified non-institutional (private) residence as the place of occurrence of the external cause; E11.42 Type 2 diabetes mellitus with diabetic polyneuropathy; I10 Essential (primary) hypertension; F41.9 Anxiety disorder, unspecified; F32.9 Major depressive disorder, single episode, unspecified; Z96.652 Presence of left artificial knee joint; Z79.82 Long term (current) use of aspirin
CPT/HCPCS: 36415; 70450; 70553; 71101; 72125; 80048; 80053; 81003; 82009; 82803; 83036; 83605; 83690; 83735; 84100; 84443; 84484; 85025; 85610; 87150; 93005; 93306; 96361; 96374; 97116; 97162; 97166; 97530; 99284; 99285; A9270; A9585; J2060; 80306; 80320; 81001; 87086

== ENCOUNTER 2019-08-18 10:54 | Outpatient (CLI) | payer MEDICARE, OTHER ==
[2019-08-19 11:54] LABS: HEPATITIS B SURFACE ANTIGEN NON-REACTIVE (NON-REACTIVE)
[2019-08-23 12:14] LABS: COMPLEMENT COMPONENT C3C 112 mg/dL (82-185); COMPLEMENT COMPONENT C4C 29 mg/dL (15-53)
[2019-08-24 18:54] LABS: HEPATITIS C VIRAL RNA GENOTYPE NOT DETECTED
== END 2019-08-18 10:55 | disposition home or self-care (01) ==
LOC: LAB 10:54
PROVIDERS: ATTEND Psychiatry & Neurology Neurology
DX: G62.9 Polyneuropathy, unspecified (principal); Z11.59 Encounter for screening for other viral diseases
CPT/HCPCS: 36415; 81599; 82595; 85651; 86021; 86140; 86160; 87340; 87902

== ENCOUNTER 2019-08-24 13:56 | Outpatient (CLI) | payer MEDICARE, OTHER | END 2019-08-24 13:57 | disposition home or self-care (01) | LOC: LAB 13:56 | PROVIDERS: ATTEND Psychiatry & Neurology Neurology | DX: G62.9 Polyneuropathy, unspecified (principal); Z11.59 Encounter for screening for other viral diseases | CPT/HCPCS: 81599; 86162 ==

== ENCOUNTER 2019-09-11 09:15 | Outpatient (CLI) | payer MEDICARE, OTHER ==
[2019-09-11 10:04] LABS: HB2 TOTAL 13.8 g/dL; HEMOGLOBIN A1C 0.56 g/dL; HEMOGLOBIN A1C % 5.9 % (4.6-6.2)
== END 2019-09-11 09:16 | disposition home or self-care (01) ==
LOC: LAB 09:15
PROVIDERS: ATTEND Internal Medicine
DX: R73.01 Impaired fasting glucose (principal)
CPT/HCPCS: 36415; 83036

== ENCOUNTER 2019-09-26 08:08 | Outpatient (CLI) | payer MEDICARE, OTHER | END 2019-09-26 08:09 | disposition critical access hospital (66) | LOC: EMS 08:08 | PROVIDERS: ATTEND Surgery | DX: R56.9 Unspecified convulsions (principal); R29.6 Repeated falls | CPT/HCPCS: A0425; A0429 ==

== ENCOUNTER 2019-09-26 08:19 | Emergency (ER) | payer MEDICARE, OTHER ==
[2019-09-26] MEDS ORDERED: SODIUM CHLORIDE 0.9% 1,000 ML IV STA (08:35)
--- NOTE | 2019-09-26 08:39 | ED Physician Documentation ---
PD HPI SEIZURE - Stated complaint Stated Complaint: SZ - Chief complaint Chief Complaint: Neuro - History obtained from History obtained from: Patient, EMS - History of Present Illness Timing - onset: Enter time, Today Witnessed: Witnessed Number of seizures: Single Description of seizure activity: Focal, Generalized Injury during seizure: Head injury Associated symptoms: None History of seizures: Known seizure disorder Contributing factors: Head injury (4 days ago) Similar symptoms before: Diagnosis (seizure disorder) Recently seen: Not recently seen - Additional information Additional information: 73-year-old male with a history of seizure disorder has absence and generalized seizure. He has had 2 seizures in the last 6 months and he is on Lamictal and Klonopin. He has been taking his medications and he denies any current illness. He does state that 4 days ago he fell in his yard moving a wheelbarrow, landed on his buttocks, has some buttocks pain, and hit the back of his head at that time. Today he was at home when he had a absence seizure witnessed by his followed by generalized tonic-clonic seizing and a 30-minute postictal period. He did strike the back of his head on the headboard and has a small skin abrasion. He denies any current illness. Review of Systems Constitutional: denies: Fever, Chills, Myalgias, Fatigue Eyes: denies: Decreased vision Ears: reports: Loss of hearing (chronic in the right ear). denies: Ear pain Nose: denies: Rhinorrhea / runny nose, Congestion Throat: reports: Other (dry lips). denies: Sore throat Cardiac: denies: Chest pain / pressure, Palpitations Respiratory: denies: Dyspnea, Cough GI: denies: Abdominal Pain, Nausea, Vomiting, Constipation, Diarrhea : reports: Frequency. denies: Dysuria Skin: denies: Rash Musculoskeletal: reports: Extremity pain (peripheral neuropathy to the feet worse on the right). denies: Neck pain, Back pain Neurologic: denies: Generalized weakness, Focal weakness, Numbness PD PAST MEDICAL HISTORY - Past Medical History Cardiovascular: Hypertension, High cholesterol, Other Respiratory: None, Sleep apnea Neuro: CVA, TIA, Peripheral neuropathy, Other Endocrine/Autoimmune: Type 2 diabetes GI: GERD : Benign prostate hypertrophy, Other HEENT: Chronic hearing loss, Other Psych: Anxiety, Panic attacks, Claustrophobia Musculoskeletal: Osteoarthritis Derm: Other - Past Surgical History Past Surgical History: Yes General: Colonoscopy Ortho: Hip replacement, Knee replacement Cardiovascular: Other HEENT: Tonsil/Adenoidectomy, Other Derm: Skin cancer surgery - Present Medications Home Medications: Ambulatory Orders Medication Instructions Recorded Confirmed Calcium Carbonate/Vitamin D3 1 each PO DAILY 11/19/12 09/26/19 [Calcium 600 + Vit D Caplet] Meclizine [Antivert] 25 mg PO DAILY 11/19/12 09/26/19 Metoprolol Succinate [Toprol Xl] 50 mg PO DAILY PM 11/19/12 09/26/19 Multivitamin [Multi-Vitamin Daily] 1 each PO DAILY 11/19/12 09/26/19 Omeprazole [PriLOSEC] 20 mg PO DAILY 11/19/12 09/26/19 Ubidecarenone [Coq-10] 100 mg PO DAILY 11/19/12 09/26/19 busPIRone [Buspar] 15 mg PO BID 11/19/12 09/26/19 Aspirin 81 mg PO DAILY 11/30/18 09/26/19 Atorvastatin Calcium 20 mg PO QPM 11/30/18 09/26/19 Naproxen Sodium [Aleve] 220 mg PO Q12H PRN 11/30/18 09/26/19 Pregabalin [Lyrica] 75 mg PO DAILY PM 11/30/18 09/26/19 Tamsulosin HCl [Flomax] 0.4 mg PO DAILY 11/30/18 09/26/19 cloNIDine HCL [Clonidine HCl] 10 mg PO PRN PRN 11/30/18 09/26/19 Thiamine [Vitamin B-1] 100 mg PO DAILY #30 tablet 12/02/18 09/26/19 Acetylcysteine [N-A-C Sustain] 1,200 mg PO DAILY 09/26/19 09/26/19 Alpha Lipoic Acid 3 tab PO DAILY 09/26/19 09/26/19 HYDROcod/ACETAM 5/325 [[place] 5/325] 0.5 - 1 ea PO DAILY PRN 09/26/19 09/26/19 Lutein 0 mg PO DAILY 09/26/19 09/26/19 [place]-3/Dha/Epa/Fish Oil [Fish Oil 1 each PO TID 09/26/19 09/26/19 500 mg Softgel] Turmeric 400 mg PO DAILY 09/26/19 09/26/19 lamoTRIgine [Lamictal] 150 mg SL BID 09/26/19 09/26/19 - Allergies Allergies/Adverse Reactions: Allergies Allergy/AdvReac Type Severity Reaction Status Date / Time celecoxib [From Celebrex] Allergy Severe swelling & Verified 09/26/19 08:35 hives simvastatin [From Zocor] Allergy Unknown unknown Verified 09/26/19 08:35 - Social History Does the pt smoke?: No Smoking Status: Never smoker Does the pt drink ETOH?: Yes Does the pt have substance abuse?: No - POLST Patient has POLST: No PD ED PE NORMAL - Vitals Vital signs reviewed: Yes (tachy and hypertensive ) - General General: Alert and oriented X 3, No acute distress, Well developed/nourished - HEENT HEENT: PERRL, EOMI, Ears normal, Other (dry mucous membranes. There is an abrasion to the occiput without crepitance or deformity to suggest fracture. ) - Neck Neck: Supple, no meningeal sign, No bony TTP - Cardiac Cardiac: No murmur, Other (tachy to 110) - Respiratory Respiratory: No respiratory distress, Clear bilaterally - Abdomen Abdomen: Normal bowel sounds, Soft, Non tender, Non distended, No organomegaly - Back Back: No CVA TTP, No spinal TTP, Other (tenderness to the tailbone ) - Derm Derm: Normal color, Warm and dry, No rash - Extremities Extremities: No deformity, No edema, No calf tenderness / cord - Neuro Neuro: Alert and oriented X 3, manager export 2-12 intact, No motor deficit, No sensory deficit, Normal speech Eye Opening: Spontaneous Motor: Obeys Commands Verbal: Oriented GCS Score: 15 - Psych Psych: Normal mood, Normal affect Results - Vitals Vitals: Vital Signs - 24 hr 09/26/19 09/26/19 09/26/19 08:20 09:45 10:30 Temperature 36.6 C Heart Rate 112 H 81 77 Respiratory 10 L 10 L 11 L Rate Blood Pressure 158/92 H 148/85 H 153/86 H O2 Saturation 100 99 99 09/26/19 11:00 Temperature Heart Rate 82 Respiratory 13 Rate Blood Pressure 158/101 H O2 Saturation 99 Oxygen O2 Source Room air - Labs Labs: Laboratory Tests 06/09/26/19 09/26/19 09:40 09:40 09:40 WBC 8.8 RBC 4.32 L Hgb 14.2 Hct 41.1 L MCV 95.1 H MCH 32.9 H MCHC 34.5 RDW 12.3 Plt Count 176 MPV 9.7 Neut # (Auto) 7.5 H Lymph # (Auto) 0.5 L [place] # (Auto) 0.7 Eos # (Auto) 0.0 Baso # (Auto) 0.0 Absolute Nucleated RBC 0.00 Nucleated RBC % 0.0 Sodium 134 L Potassium 4.2 Chloride 99 L Carbon Dioxide 27 Anion Gap 8.0 BUN 19 Creatinine 0.8 Estimated GFR (MDRD) 95 Glucose 124 H Calcium 9.2 Total Bilirubin 0.5 AST 19 ALT 21 Alkaline Phosphatase 78 Total Protein 6.8 Albumin 4.5 Globulin 2.3 Albumin/Globulin Ratio 2.0 Lipase 29 Urine Color Urine Clarity Urine pH Ur Specific [place] Urine Protein Urine Glucose (UA) Urine Ketones Urine Occult Blood Urine Nitrite Urine Bilirubin Urine Urobilinogen Ur Leukocyte Esterase Urine RBC Urine WBC Ur Squamous Epith Cells Urine Bacteria Ur Microscopic Review Urine Culture Comments Last Dose Date UNKNOWN Last Dose Time UNKNOWN Valproic Acid < 10.0 Ethyl Alcohol < 5.0 09/26/19 09:40 WBC RBC Hgb Hct MCV MCH MCHC RDW Plt Count MPV Neut # (Auto) Lymph # (Auto) [place] # (Auto) Eos # (Auto) Baso # (Auto) Absolute Nucleated RBC Nucleated RBC % Sodium Potassium Chloride Carbon Dioxide Anion Gap BUN Creatinine Estimated GFR (MDRD) Glucose Calcium Total Bilirubin AST ALT Alkaline Phosphatase Total Protein Albumin Globulin Albumin/Globulin Ratio Lipase Urine Color YELLOW Urine Clarity CLEAR Urine pH 6.5 Ur Specific [place] 1.020 Urine Protein 30 H Urine Glucose (UA) NEGATIVE Urine Ketones NEGATIVE Urine Occult Blood NEGATIVE Urine Nitrite NEGATIVE Urine Bilirubin NEGATIVE Urine Urobilinogen 1 (NORMAL) Ur Leukocyte Esterase NEGATIVE Urine RBC 0-5 Urine WBC 0-3 Ur Squamous Epith Cells RARE Squamous Urine Bacteria Rare Ur Microscopic Review INDICATED Urine Culture Comments NOT INDICATED Last Dose Date Last Dose Time Valproic Acid Ethyl Alcohol - Rads (name of study) sacrum/coccyx Radiology: Prelim report reviewed (Impression: No evidence of sacral or coccyx fracture. If clinical symptoms persist, or if the patient is unable to bear weight, CT of the pelvis would be recommended to more definitively exclude a fracture.), EMP read indepedently, See rad report CT head without Radiology: Prelim report reviewed (Impression: 1. No CT evidence of acute intracranial pathology. 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 He does not have any known precipitant for the seizure. His states that she believes he is not sleeping as well as he should be he is getting about 6 hours of sleep and per night and takes naps during the day. He was found to be mildly dehydrated on interrogation the inferior vena cava and this was replaced with saline. I have asked the patient to follow-up with his neurologist for possible medication adjustments. Departure - Departure Disposition: 01 Home, Self Care Clinical Impression: Seizure Condition: Stable Instructions: ED Seizure Recurrent Follow-Up: Jorge Luis Foley MD [Primary Care Provider] - Comments: Today we did not find a specific precipitant for your seizure. The usual ca uses, sleep deprivation, infection, stress should all be considered. Medication adjustments may be necessary and a follow-up with your neurologist is recommended.
--- NOTE | 2019-09-26 09:17 | CT Report ---
PROCEDURE: HEAD WO INDICATIONS: seizure head injury TECHNIQUE: Noncontrast 4.5 mm thick angled axial sections acquired from the foramen magnum to the vertex. For r adiation dose reduction, the following was used: automated exposure control, adjustment of mA and/or kV according to patient size. COMPARISON: 11/30/2018 FINDINGS: Image quality: Excellent. CSF spaces: Basal cisterns are patent. No extra-axial fluid collections. The ventricles are symmet claude in size and shape. Brain: No intracranial bleeds or masses. Again noted is encephalomalacia in left occipitotemporal r egion consistent with old left [employer] infarction. There is cerebral volume loss for age, with resultant ventricular and sulcal prominence. There are periventricular and deep white matter chronic small ves pamela ischemic changes. There is intracranial internal carotid artery atherosclerosis. Skull and face: Calvarium and visualized facial bones appear intact, without suspicious lesions. Sinuses: Visualized sinuses and mastoids are clear. IMPRESSION: 1. No CT evidence of acute intracranial pathology. 2. 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 Reviewed by: Star Cardona MD on 09/26/2019 9:16 AM PDT Approved by: Star Cardona MD on 09/26/2019 9:16 AM PDT Station ID: [id number]
--- NOTE | 2019-09-26 09:27 | XRAY Report ---
PROCEDURE: Sacrum/Coccyx INDICATIONS: Fall, tailbone injury TECHNIQUE: 3 views of the sacrum and coccyx acquired. COMPARISON: None FINDINGS: The sacrum is grossly intact with no evidence of fracture. The sacral arcuate lines are maintained. L ateral view demonstrates normal alignment of the sacrum and coccygeal elements with no evidence of fr acture or significant subluxation. IMPRESSION: No evidence of sacral or coccyx fracture. If clinical symptoms persist, or if the patient is unable t o bear weight, CT of the pelvis would be recommended to more definitively exclude a fracture. Reviewed by: Keith Miranda MD on 09/26/2019 9:26 AM PDT Approved by: Keith Miranda MD on 09/26/2019 9:26 AM PDT Station ID: [id number]
[2019-09-26 09:53] LABS: BILIRUBIN,URINE NEGATIVE (NEGATIVE); GLUCOSE, URINE (UA) NEGATIVE (NEGATIVE); KETONES,URINE (UA) NEGATIVE (NEGATIVE); LEUKOCYTE ESTERASE, URINE NEGATIVE (NEGATIVE); NITRITE,URINE NEGATIVE (NEGATIVE); OCCULT BLOOD,URINE NEGATIVE (NEGATIVE); PH,URINE 6.5 PH (5.0-7.5); PROTEIN,URINE 30 mg/dL (NEGATIVE); UROBILINOGEN,URINE 1 (NORMAL) E.U./dL (NORMAL)
[2019-09-26 09:56] LABS: CLARITY,URINE CLEAR (CLEAR)
[2019-09-26 10:09] LABS: ALBUMIN 4.5 g/dL (3.2-5.5); ALKALINE PHOSPHATASE 78 IU/L (42-121); ALT ALANINE AMINOTRANSFERASE 21 IU/L (10-60); AST ASPARTATE AMINOTRANSFERASE 19 IU/L (10-42); BILIRUBIN,TOTAL 0.5 mg/dL (0.2-1.0); BUN - BLOOD UREA NITROGEN 19 mg/dL (6-20); CALCIUM 9.2 mg/dL (8.5-10.3); CARBON DIOXIDE - CO2 27 mmol/L (21-32); CHLORIDE 99 mmol/L (101-111); CREATININE 0.8 mg/dL (0.6-1.2); GLUCOSE 124 mg/dL (70-100); LIPASE 29 U/L (22-51); SODIUM 134 mmol/L (135-145); TOTAL PROTEIN 6.8 g/dL (6.7-8.2)
[2019-09-26 10:11] LABS: BACTERIA,URINE Rare /HPF (None Seen); RBC,URINE 0-5 /HPF (0-5); SQUAMOUS EPITHELIAL CELL,UR RARE Squamous (<= Few)
[2019-09-26 10:15] LABS: BASOPHILS % (AUTO) 0.2 %; EOSINOPHILS % (AUTO) 0.5 %; HGB - HEMOGLOBIN 14.2 g/dL (14.0-18.0); LYMPHOCYTES # (AUTO) 0.5 10^3/uL (1.5-3.5); LYMPHOCYTES % (AUTO) 5.2 %; MEAN CORPUSCULAR HEMOGLOBIN 32.9 pg (27.0-31.0); MEAN CORPUSCULAR HGB CONC 34.5 g/dL (32.0-36.0); MEAN CORPUSCULAR VOLUME 95.1 fL (80.0-94.0); MEAN PLATELET VOLUME 9.7 fL (7.4-11.4); MONOCYTES # (AUTO) 0.7 10^3/uL (0.0-1.0); MONOCYTES % (AUTO) 8.3 %; NEUTROPHILS # (AUTO) 7.5 10^3/uL (1.5-6.6); NEUTROPHILS % (AUTO) 85.1 %; PLT - PLATELET COUNT 176 10^3/uL (130-450); RED BLOOD COUNT 4.32 10^6/uL (4.70-6.10); RED CELL DISTRIBUTION WIDTH 12.3 % (12.0-15.0); WHITE BLOOD COUNT 8.8 x10^3/uL (4.8-10.8)
[2019-09-26 10:30] LABS: VALPROIC ACID (DEPAKOTE) < 10.0 ug/mL
[2019-09-26 11:14] VITALS: BP 158/101
== END 2019-09-26 11:31 | disposition home or self-care (01) ==
LOC: EDUNIT# → ED 08:19
DX: G40.909 Epilepsy, unspecified, not intractable, without status epilepticus (principal); E86.0 Dehydration; S00.01XA Abrasion of scalp, initial encounter; W22.09XA Striking against other stationary object, initial encounter; Y92.003 Bedroom of unspecified non-institutional (private) residence as the place of occurrence of the external cause; E11.42 Type 2 diabetes mellitus with diabetic polyneuropathy; M53.3 Sacrococcygeal disorders, not elsewhere classified; W18.30XA Fall on same level, unspecified, initial encounter; Y93.89 Activity, other specified; Y92.007 Garden or yard of unspecified non-institutional (private) residence as the place of occurrence of the external cause; I10 Essential (primary) hypertension; Z79.82 Long term (current) use of aspirin
CPT/HCPCS: 36415; 70450; 72220; 80053; 80164; 80320; 81001; 81003; 83690; 85025; 87086; 96360; 99284

== ENCOUNTER 2019-09-28 11:44 | Outpatient (CLI) | payer MEDICARE, OTHER | END 2019-09-28 11:45 | disposition home or self-care (01) | LOC: LAB 11:44 | PROVIDERS: ATTEND Psychiatry & Neurology Neurology | DX: G40.909 Epilepsy, unspecified, not intractable, without status epilepticus (principal) | CPT/HCPCS: 36415; 80175 ==

== ENCOUNTER 2019-11-14 13:49 | Outpatient (CLI) | payer MEDICARE, OTHER ==
--- NOTE | 2019-11-14 15:46 | MRI Report ---
PROCEDURE: Ankle RT W/O INDICATIONS: UNSPECIFIED MONONEUROPATHY OF RIGHT LOWER LIMB TECHNIQUE: Noncontrast Magnetic Resonance Imaging (MRI) of the ankle/hindfoot was performed utilizing the follow ing sequences on a 3.0 Madonna Siemens MRI: sagittal T1 spin echo, sagittal STIR, axial PD fast spin ec ho, axial T2 fast spin echo with fat saturation, coronal T2 spin echo with fat saturation, and PD fas t spin echo with fat saturation. COMPARISON: None. FINDINGS: Image quality: Diagnostic. Bones and joints: No acute fracture, dislocation, or suspicious osseous lesion of the midfoot or hindfoot bones is pres ent. Degenerative subchondral cysts within the proximal aspects of the third and fourth metatarsals a s well as the distal cuboid and third cuneiforms. No significant midfoot or hindfoot joint effusions are present. The ankle mortise is well-maintained. No osteochondral defects are evident involving the tibial plafond toward the talar dome. No significant degenerative changes of the midfoot or hindfoot joints are present. Medial structures: The deltoid ligament and the spring ligament are intact. The posterior tibialis, flexor digitorum longus, and flexor hallucis longus tendons are intact and wi thin normal limits. The posterior tibial neurovascular bundle appears normal within the tarsal tunnel , without extrinsic mass effect. Lateral structures: The anterior and posterior distal tibiofibular ligaments are also intact. The anterior talofibular li gament, posterior talofibular ligament, and calcaneofibular ligament are intact. The peroneus longus and peroneus brevis tendons are intact and otherwise unremarkable. The sinus tarsi demonstrates normal fatty signal. Anterior structures: The tibialis anterior, extensor hallucis longus, and extensor digitorum longus tendons appear intact. Posterior and plantar structures: The Achilles tendon is intact. The medial and lateral bands of the plantar fascia are within normal l imits. IMPRESSION: 1. Tarsometatarsal joint osteoarthritis. Reviewed by: Belén Spangler MD on 11/14/2019 3:44 PM PDT Approved by: Belén Spangler MD on 11/14/2019 3:44 PM PDT Station ID: [id number]
== END 2019-11-14 13:50 | disposition home or self-care (01) ==
LOC: DI 13:49
PROVIDERS: ATTEND Podiatrist Foot & Ankle Surgery
DX: M19.071 Primary osteoarthritis, right ankle and foot (principal)

== ENCOUNTER 2020-02-05 18:32 | Outpatient (CLI) | payer MEDICARE, OTHER | END 2020-02-05 18:33 | disposition home or self-care (01) | LOC: COV 18:32 | PROVIDERS: ATTEND Ophthalmology | DX: Z20.828 Contact with and (suspected) exposure to other viral communicable diseases (principal) ==

== ENCOUNTER 2020-02-08 07:06 | Day surgery (SDC) | payer MEDICARE, OTHER ==
[2020-02-08] MEDS ORDERED: MIDAZOLAM 2 MG/2 ML VIAL IVP ONE (07:07)
[2020-02-08] MEDS ORDERED: EPINEPHrine 1 MG/ML AMP ONE (07:11)
[2020-02-08] MEDS ORDERED: BRIMONIDINE 0.2% OPHTH DROPS 5 ML ONE (07:11)
[2020-02-08] MEDS ORDERED: TIMOLOL 0.5% OPHTH DROPS ONE (07:11)
[2020-02-08] MEDS ORDERED: TRIAMCIN/MOXIFLOX OPHTHALMIC 0.6 ML VIAL IO ONE (07:11)
[2020-02-08] MEDS ORDERED: BSS/LIDOCAINE/EPINEPHRINE 1 ML SYRINGE ONE (07:12)
[2020-02-08] MEDS ORDERED: VANCOMYCIN OPHTHALMI 8MG/0.8ML 8 MG/0.8 ML SYRINGE IO ONE (07:12)
[2020-02-08] MEDS ORDERED: NALOXONE 0.4 MG/ML VIAL IVP PRN (07:52)
[2020-02-08] MEDS ORDERED: ePHEDrine 50 MG/ML VIAL IVP PRN (07:52)
[2020-02-08] MEDS ORDERED: ONDANSETRON 4 MG/2 ML VIAL IVP PRN (07:52)
[2020-02-08] MEDS ORDERED: MORPHINE 2 MG/ML CARPUJECT IVP PRN (07:52)
[2020-02-08] MEDS ORDERED: ATROPINE ABBOJECT 1 MG/10 ML SYRINGE IVP PRN (07:52)
[2020-02-08] MEDS ORDERED: fentaNYL 100 MCG/2 ML VIAL IVP PRN (07:52)
[2020-02-08] MEDS ORDERED: METOCLOPRAMIDE 10 MG/2 ML VIAL IVP PRN (07:52)
[2020-02-08] MEDS ORDERED: HYDROmorphone 0.5 MG/0.5 ML SYRINGE IVP PRN (07:52)
--- NOTE | 2020-02-08 07:52 | ANESTHESIA ---
Pre-Anesthesia VS, & Labs - Diagnosis right eye cataract - Procedure right CATIOL Height: 6 ft - NPO >8 hours Home Medications and Allergies Calcium Carbonate/Vitamin D3 [Calcium 600 + Vit D Caplet] 1 each PO DAILY 11/19/12 Meclizine [Antivert] 25 mg PO DAILY 11/19/12 Metoprolol Succinate [Toprol Xl] 50 mg PO DAILY PM 11/19/12 Multivitamin [Multi-Vitamin Daily] 1 each PO DAILY 11/19/12 Omeprazole [PriLOSEC] 20 mg PO DAILY 11/19/12 Ubidecarenone [Coq-10] 100 mg PO DAILY 11/19/12 busPIRone [Buspar] 15 mg PO BID 11/19/12 Aspirin 81 mg PO DAILY 11/30/18 Atorvastatin Calcium 20 mg PO QPM 11/30/18 Naproxen Sodium [Aleve] 220 mg PO Q12H PRN 11/30/18 Pregabalin [Lyrica] 75 mg PO DAILY PM 11/30/18 Tamsulosin HCl [Flomax] 0.4 mg PO DAILY 11/30/18 cloNIDine HCL [Clonidine HCl] 10 mg PO PRN PRN 11/30/18 Acetylcysteine [N-A-C Sustain] 1,200 mg PO DAILY 09/26/19 Alpha Lipoic Acid 3 tab PO DAILY 09/26/19 HYDROcod/ACETAM 5/325 [[place] 5/325] 0.5 - 1 ea PO DAILY PRN 09/26/19 Lutein 0 mg PO DAILY 09/26/19 [place]-3/Dha/Epa/Fish Oil [Fish Oil 500 mg Softgel] 1 each PO TID 09/26/19 Turmeric 400 mg PO DAILY 09/26/19 lamoTRIgine [Lamictal] 150 mg SL BID 09/26/19 Allergies/Adverse Reactions: Allergies Allergy/AdvReac Type Severity Reaction Status Date / Time celecoxib [From Celebrex] Allergy Severe swelling & Verified 09/26/19 08:35 hives simvastatin [From Zocor] Allergy Unknown unknown Verified 09/26/19 08:35 Anes History & Medical History - Anesthetic History Anesthesia Complications: reports: No previous complications Family history of Anesthesia Complications: Denies Family history of Malignant Hyperthermia: Denies - Medical History Cardiovascular: reports: Hypertension, High cholesterol, Other Pulmonary: reports: None, Sleep apnea Gastrointestinal: reports: GERD Urinary: reports: Benign prostate hypertrophy, Other Neuro: reports: CVA (right sided weakness, wears right ankle brace and uses wal ker), TIA, Peripheral neuropathy, Other Musculoskeletal: reports: Osteoarthritis Endocrine/Autoimmune: reports: Type 2 diabetes Blood Disorders: reports: None Skin: reports: Other Smoking Status: Never smoker - Surgical History General: Colonoscopy Eyes Ears Nose Throat (EENT): Tonsil/Adenoidectomy, Other Cardiothoracic: Other Orthopedic: Hip replacement, Knee replacement Dermatologic: Skin cancer surgery Exam General: Alert, Oriented x3, Cooperative, No acute distress Dental: WNL Mouth Openin Fingerbreadth Neck Mobility: Normal Mallampati classification: II Respiratory: Lungs clear, Normal breath sounds, No respiratory distress, No accessory muscle use Cardiovascular: Regular rate, Normal S1, Normal S2, No murmurs Plan Anesthesia Type: MAC Consent for Procedure(s) Verified and Reviewed: Yes Code Status: Attempt Resuscitation ASA classification: 3-Severe systemic disease Is this case an emergency?: No
[2020-02-08] MEDS: PHENYLEPHRINE 2.5% OPHTH 2 ML DROPS ONE (07:59)
[2020-02-08] MEDS: PROPARACAINE 0.5% OPHTH DROPS 15 ML ONE (07:59)
[2020-02-08] MEDS: KETOROLAC 0.45% OPHTH DROPS ONE (08:00)
[2020-02-08] MEDS ORDERED: LACTATED RINGERS 1,000 ML IV SCH (08:00)
[2020-02-08] MEDS: LACTATED RINGERS 500 ML IV ONE ×2 (08:05→08:46)
[2020-02-08] MEDS: BRIMONIDINE 0.2% OPHTH DROPS 5 ML OPTH ONE (08:23)
[2020-02-08] MEDS: EPINEPHrine 1 MG/ML AMP IR ONE (08:25)
[2020-02-08] MEDS: CHONDR SULF/HYALURONATE SYRINGE IO ONE (08:25)
[2020-02-08] MEDS: VANCOMYCIN OPHTHALMI 8MG/0.8ML 8 MG/0.8 ML SYRINGE IO ONE (08:26)
[2020-02-08] MEDS: BSS/LIDOCAINE/EPINEPHRINE 1 ML SYRINGE IO ONE (08:26)
[2020-02-08] MEDS: TRIAMCIN/MOXIFLOX OPHTHALMIC 0.6 ML VIAL IO ONE (08:26)
[2020-02-08] MEDS: PROPARACAINE 0.5% OPHTH DROPS 15 ML EACHEYE ONE (08:26)
[2020-02-08] MEDS: TIMOLOL 0.5% OPHTH DROPS OPTH ONE (08:26)
[2020-02-08 09:12] VITALS: BP 113/60
--- NOTE | 2020-02-08 09:49 | ANESTHESIA POST OP EVALUATION ---
Anesthesia Post Eval - Post Anesthesia Eval Vitals: Last Vital Signs Temp 36.0 C L 02/08/20 08:45 Pulse 66 02/08/20 09:00 Resp 16 02/08/20 09:00 BP 113/60 02/08/20 09:00 Pulse Ox 98 02/08/20 09:00 CV Function Including HR & BP: positive: Stable Pain Control: positive: Satisfactory Nausea & Vomiting: positive: Negative Mental Status: positive: Baseline Respiratory Status: Airway Patent Hydration Status: Satisfactory Anesthesia Complications: positive: None
--- NOTE | 2020-02-08 11:45 | OPERATIVE REPORT ---
DATE OF SERVICE: 02/08/2020 Physician: Kiko España MD PREOPERATIVE DIAGNOSIS: Complex visually significant cataract, right eye; complex due to use of Flomax causing poor pupil dilation and an unstable floppy iris. This was his first cataract surgery. POSTOPERATIVE DIAGNOSIS: Complex visually significant cataract, right eye; complex due to use of Flomax causing poor pupil dilation and an unstable floppy iris. This was his first cataract surgery. PROCEDURE: Phacoemulsification with posterior chamber intraocular lens implant, right eye. SURGEON: Kiko España MD ANESTHESIA: Monitored anesthesia care. COMPLICATIONS: None. OPERATIVE INDICATIONS: This is a 74-year-old man with progressive vision loss in the right eye due to 2+ nuclear sclerotic and vacuolar cataract. Best corrected visual acuity was 20/25, with glare to 20/500 in the right eye. Indications for surgery are overall decrease in vision, difficulty seeing words on a computer screen, difficulty seeing words, closed caption or game scores on TV, difficulty driving in low light at night, difficulty driving at night because of headlights from other vehicles, and difficulty with glare or bright lights in any situation. He has consented at length concerning risks and benefits of cataract surgery, after which he expressed a desire to proceed with surgery. OPERATIVE PROCEDURE: The patient was taken to OR #3 and placed under monitored anesthesia care. A surgical timeout was conducted confirming correct patient, correct procedure, and correct surgical site. He was given topical anesthesia, and prepped and draped in the usual sterile fashion. The eye was entered at the 12, and 9 o'clock positions. Intracameral Shugarcaine was injected into the anterior chamber, followed by Viscoat. A Malyugin ring was then injected into the anterior chamber and engaged the pupil at 4 points to expand the pupil. A continuous-tear curvilinear capsulorrhexis was performed. The nucleus was hydrodissected and phacoemulsified. The cortex was evacuated using automated infusion and aspiration. Provisc was injected in the capsular bag and a 23.0 diopter intraocular toric lens was inserted into the bag and rotated to axis 154. The Malyugin ring was then disengaged from the pupillary margin and removed from the anterior chamber. Infusion and aspiration was used to evacuate the viscoelastic materials. The orientation of the IOL was unable to be verified once the viscoelastic materials were removed because the pupil game down very rapidly; however, the IOL did not seem to move at any point during that step. The eye was inflated to physiologic pressure using balanced salt solution and found to be watertight. Approximately 0.25 mL of a mixture of triamcinolone and moxifloxacin was injected transsclerally into the vitreous in the inferotemporal quadrant. An additional 0.55 mL of a mixture of triamcinolone, moxifloxacin, and vancomycin was injected subconjunctivally in the superior quadrant for infection and inflammation prophylaxis. Again, at no point did it appear that the lens had rotated or moved in any way. Wound integrity was checked with Weck-Ana Maria sponges. The patient was taken from the Operating Room in good condition and given postoperative instructions. TD: 02/08/2020 09:23 [place]
== END 2020-02-08 07:07 | disposition home or self-care (01) ==
LOC: SDS 07:06
PROVIDERS: ATTEND Ophthalmology
DX: E11.36 Type 2 diabetes mellitus with diabetic cataract (principal); H25.11 Age-related nuclear cataract, right eye; H21.81 Floppy iris syndrome; N40.0 Benign prostatic hyperplasia without lower urinary tract symptoms; Z79.899 Other long term (current) drug therapy; G47.30 Sleep apnea, unspecified; I10 Essential (primary) hypertension; I69.951 Hemiplegia and hemiparesis following unspecified cerebrovascular disease affecting right dominant side
CPT/HCPCS: 66982; A9270; J3490; J7120; V2632; V2788

== ENCOUNTER 2020-02-23 14:04 | Outpatient (CLI) | payer MEDICARE, OTHER | END 2020-02-23 14:05 | disposition home or self-care (01) | LOC: COV 14:04 | PROVIDERS: ATTEND Ophthalmology | DX: Z01.812 Encounter for preprocedural laboratory examination (principal); H25.12 Age-related nuclear cataract, left eye; Z20.828 Contact with and (suspected) exposure to other viral communicable diseases ==

== ENCOUNTER 2020-02-29 09:09 | Day surgery (SDC) | payer MEDICARE, OTHER ==
[2020-02-29] MEDS ORDERED: LACTATED RINGERS 500 ML IV ONE (09:37)
[2020-02-29] MEDS ORDERED: KETOROLAC 0.45% OPHTH DROPS ONE (09:40)
[2020-02-29] MEDS ORDERED: PROPARACAINE 0.5% OPHTH DROPS 15 ML ONE (09:40)
[2020-02-29] MEDS ORDERED: PHENYLEPHRINE 2.5% OPHTH 2 ML DROPS ONE (09:40)
--- NOTE | 2020-02-29 10:09 | ANESTHESIA ---
Pre-Anesthesia VS, & Labs - Diagnosis Left Cataract - Procedure Left PHACO/IOL Vital Signs: Temp Pulse Resp BP Pulse Ox 36.3 C L 65 16 154/84 H 100 02/29/20 09:37 02/29/20 09:37 02/29/20 09:37 02/29/20 09:37 02/29/20 09:37 Height: 5 ft 11 in Weight (kg): 87.6 kg Body Mass Index: 26.9 BMI Classification: Overweight - NPO >8 hours Home Medications and Allergies Calcium Carbonate/Vitamin D3 [Calcium 600 + Vit D Caplet] 1 each PO DAILY 11/19/12 Meclizine [Antivert] 25 mg PO DAILY 11/19/12 Metoprolol Succinate [Toprol Xl] 50 mg PO DAILY PM 11/19/12 Omeprazole [PriLOSEC] 20 mg PO DAILY 11/19/12 Ubidecarenone [Coq-10] 100 mg PO DAILY 11/19/12 busPIRone [Buspar] 10 mg PO BID 11/19/12 Aspirin 81 mg PO DAILY 11/30/18 Atorvastatin Calcium 20 mg PO QPM 11/30/18 Naproxen Sodium [Aleve] 220 mg PO Q12H PRN 11/30/18 Tamsulosin HCl [Flomax] 0.4 mg PO DAILY 11/30/18 cloNIDine HCL [Clonidine HCl] 10 mg PO PRN PRN 11/30/18 Acetylcysteine [N-A-C Sustain] 1,200 mg PO DAILY 09/26/19 Alpha Lipoic Acid 3 tab PO DAILY 09/26/19 Lutein 0 mg PO DAILY 09/26/19 [place]-3/Dha/Epa/Fish Oil [Fish Oil 500 mg Softgel] 1 each PO TID 09/26/19 Turmeric 400 mg PO DAILY 09/26/19 lamoTRIgine [Lamictal] 150 mg SL BID 09/26/19 Allergies/Adverse Reactions: Allergies Allergy/AdvReac Type Severity Reaction Status Date / Time celecoxib [From Celebrex] Allergy Severe swelling & Verified 02/28/20 13:31 hives simvastatin [From Zocor] Allergy Unknown unknown Verified 02/28/20 13:31 Anes History & Medical History - Anesthetic History Anesthesia Complications: reports: No previous complications - Medical History Cardiovascular: reports: Hypertension, High cholesterol, Other Pulmonary: reports: None, Sleep apnea (Had surgery, no longer an issue) Gastrointestinal: reports: GERD Urinary: reports: Benign prostate hypertrophy, Other Neuro: reports: CVA (right sided weakness, wears right ankle brace and uses walker), TIA, Peripheral neuropathy (With painful episodes), Other Musculoskeletal: reports: Osteoarthritis Endocrine/Autoimmune: reports: Type 2 diabetes (Denies) Blood Disorders: reports: None Skin: reports: Other Smoking Status: Never smoker Psychosocial: reports: Anxiety, Other (Panic Attack and claustrophobia. States has not been an issue for a while.) - Surgical History General: Colonoscopy Eyes Ears Nose Throat (EENT): Tonsil/Adenoidectomy, Other Cardiothoracic: Other Orthopedic: Hip replacement, Knee replacement Dermatologic: Skin cancer surgery Plan Anesthesia Type: MAC Consent for Procedure(s) Verified and Reviewed: Yes Code Status: Attempt Resuscitation ASA classification: 3-Severe systemic disease Is this case an emergency?: No (Discussed anesthesia, consent signed.)
[2020-02-29] MEDS ORDERED: MIDAZOLAM 2 MG/2 ML VIAL IVP ONE (10:10)
[2020-02-29] MEDS ORDERED: fentaNYL 100 MCG/2 ML VIAL IVP ONE (10:10)
[2020-02-29] MEDS ORDERED: CHONDR SULF/HYALURONATE SYRINGE IO ONE (10:17)
[2020-02-29] MEDS ORDERED: VANCOMYCIN OPHTHALMI 8MG/0.8ML 8 MG/0.8 ML SYRINGE IO ONE ×2 (10:17→10:47)
[2020-02-29] MEDS ORDERED: BSS/LIDOCAINE/EPINEPHRINE 1 ML SYRINGE IO ONE (10:17)
[2020-02-29] MEDS ORDERED: TIMOLOL 0.5% OPHTH DROPS OPTH ONE (10:17)
[2020-02-29] MEDS ORDERED: PROPARACAINE 0.5% OPHTH DROPS 15 ML EACHEYE ONE (10:17)
[2020-02-29] MEDS ORDERED: EPINEPHrine 1 MG/ML AMP IR ONE (10:17)
[2020-02-29] MEDS ORDERED: BRIMONIDINE 0.2% OPHTH DROPS 5 ML OPTH ONE (10:17)
[2020-02-29] MEDS ORDERED: TRIAMCIN/MOXIFLOX OPHTHALMIC 0.6 ML VIAL IO ONE ×2 (10:17→10:47)
[2020-02-29] MEDS ORDERED: LACTATED RINGERS 400 ML IV ONE (10:35)
[2020-02-29] MEDS ORDERED: TIMOLOL 0.5% OPHTH DROPS ONE (10:47)
[2020-02-29] MEDS ORDERED: EPINEPHrine 1 MG/ML AMP ONE (10:47)
[2020-02-29] MEDS ORDERED: BSS/LIDOCAINE/EPINEPHRINE 1 ML SYRINGE ONE (10:47)
[2020-02-29] MEDS ORDERED: BRIMONIDINE 0.2% OPHTH DROPS 5 ML ONE (10:47)
--- NOTE | 2020-02-29 10:47 | ANESTHESIA POST OP EVALUATION ---
Anesthesia Post Eval - Post Anesthesia Eval Vitals: Last Vital Signs Temp 36.4 C L 02/29/20 10:32 Pulse 59 L 02/29/20 10:32 Resp 14 02/29/20 10:32 BP 121/62 02/29/20 10:32 Pulse Ox 99 02/29/20 10:32 CV Function Including HR & BP: positive: Stable Pain Control: positive: Satisfactory Nausea & Vomiting: positive: Negative Mental Status: positive: Baseline Respiratory Status: Airway Patent Hydration Status: Satisfactory Anesthesia Complications: positive: None (Awake and alert.No complaints.)
[2020-02-29 11:20] VITALS: BP 108/57
--- NOTE | 2020-03-01 11:12 | OPERATIVE REPORT ---
DATE OF SERVICE: 02/29/2020 Physician: Kiko España MD PREOPERATIVE DIAGNOSIS: Complex visually significant cataract left eye. 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 Cataract surgery was performed on the right eye on 02/08/2020. POSTOPERATIVE DIAGNOSIS: Complex visually significant cataract, left eye. 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 PROCEDURE: Phacoemulsification with posterior chamber intraocular lens implant, left eye with a multifocal toric IOL. SURGEON: Kiko España MD ANESTHESIA: Monitored anesthesia care. COMPLICATIONS: None. OPERATIVE INDICATIONS: This is a 74-year-old man with progressive vision loss in the left eye due to 2+ nuclear sclerotic cataract. Best corrected visual acuity was 20/25, with glare to 20/500 in the left eye. Indications for surgery are overall decrease in vision, difficulty seeing words on a computer screen, difficulty reading, difficulty seeing words closed caption or game scores on TV, difficulty driving in low light or at night, difficulty driving at night because headlights from other vehicles, difficulty with glare or bright lights in any situation, and difficulty tracking of a golf ball. He was consented at length concerning risks and benefits of cataract surgery, after which he expressed a desire to proceed with surgery. OPERATIVE PROCEDURE: The patient was taken to OR #3 and placed under monitored anesthesia care. A surgical timeout was conducted confirming correct patient, correct procedure, and correct surgical site. He was given topical anesthesia, and prepped and draped in the usual sterile fashion. The eye was entered at the 6 and 3 o'clock positions. Intracameral Shugarcaine was injected into the anterior chamber, followed by Viscoat. A Malyugin ring was then injected into the anterior chamber and was engaged with the pupillary margin of 4 points to expand the pupil and stabilize the iris. A continuous-tear curvilinear capsulorrhexis was performed. The nucleus was hydrodissected and phacoemulsified. The cortex was evacuated using automated infusion and aspiration. Provisc was injected in the capsular bag and a 22.5 diopter multifocal toric intraocular lens was inserted into the bag and rotated to axis 009 which had been previously marked on the cornea in the PACU. The Malyugin ring was then disengaged from the pupillary margin and removed from the anterior chamber. Infusion and aspiration was used to evacuate the viscoelastic materials. Due to the pupil coming down, I was unable to see the toric easton, so I used a Kuglen hook to pull the iris out of the way to check the toric axis markers. A slight adjustment clockwise was required to align the IOL with its toric easton on the cornea. The eye was inflated to physiologic pressure using balanced salt solution and found to be watertight. Approximately 0.25 mL of a mixture of triamcinolone and moxifloxacin was injected transsclerally into the vitreous in the inferotemporal quadrant. An additional 0.55 mL of a mixture of triamcinolone, moxifloxacin, and vancomycin was injected subconjunctivally in the superior quadrant for infection and inflammation prophylaxis. Wound integrity was checked with Weck-Ana Maria sponges. I could not do a final verification of the toric easton, but it did not appear that the lens had moved or turned at all during the final steps of the procedure. The patient was taken from the Operating Room in good condition and given postoperative instructions. TD: 02/29/2020 10:39 ORQUIDEA
== END 2020-02-29 09:10 | disposition home or self-care (01) ==
LOC: SDS 09:09
PROVIDERS: ATTEND Ophthalmology
DX: H25.12 Age-related nuclear cataract, left eye (principal); H21.81 Floppy iris syndrome; T44.6X5A Adverse effect of alpha-adrenoreceptor antagonists, initial encounter; N40.0 Benign prostatic hyperplasia without lower urinary tract symptoms; R73.03 Prediabetes; Z98.41 Cataract extraction status, right eye; I69.851 Hemiplegia and hemiparesis following other cerebrovascular disease affecting right dominant side; F41.0 Panic disorder [episodic paroxysmal anxiety]
CPT/HCPCS: 66982; A9270; J3490; J7120; V2632

== ENCOUNTER 2020-05-10 16:05 | Outpatient (CLI) | payer MEDICARE, OTHER ==
--- NOTE | 2020-05-11 00:54 | XRAY Report ---
PROCEDURE: Lumbar Spine Complete INDICATIONS: LUMBAR PAIN TECHNIQUE: 4 views of the lumbar spine were acquired. COMPARISON: None. FINDINGS: Bones: 5 [id number] vertebrae are present. There is normal bony alignment. No acute vertebral body compression fractures. No suspicious bony lesions. Moderate multilevel lumbar spondylosis is identified with degenerative endplate changes, disc space loss and endplate osteophyte formation. Fin dings are most pronounced at L3-4, L5-4-5, and L5-S1. Moderate lower lumbar facet arthropathy. Status post right total hip arthroplasty. No evidence for pars defects on the oblique views. Soft tissues: Overlying bowel gas pattern is normal. No suspicious soft tissue calcifications. Vas cular calcifications are present. IMPRESSION: Lumbar spine without acute osseous abnormalities. Moderate multilevel spondylosis most pronounced from L3-4 through L5-S1 with associated facet arthrop athy. Status post right total hip arthroplasty. Reviewed by: Ian New MD on 05/11/2020 12:53 AM PST Approved by: Ian New MD on 05/11/2020 12:53 AM PST Station ID: [id number]
--- NOTE | 2020-05-11 01:03 | XRAY Report ---
PROCEDURE: Pelvis 1 View INDICATIONS: LUMBAR PAIN TECHNIQUE: 2 view(s) of the pelvis acquired. COMPARISON: None. FINDINGS: Bones: No acute fractures or dislocations. Status post right total hip arthroplasty. Alignment is an atomic. There is lucency involving the medial aspect of the proximal right femoral cortex adjacent to the intramedullary femoral component. No evidence for abnormal lucency between the bone-cement inter face or hardware-cement interface. No suspicious bony lesions. Moderate degenerative changes of the l eft hip joint. Lower lumbar spondylosis. Soft tissues: Visualized bowel gas pattern is normal. No suspicious soft tissue calcifications. IMPRESSION: 1. Pelvis without acute fracture or malalignment. 2. Moderate degenerative changes of the left hip joint. 3. Status post right total hip arthroplasty with small focus of osseous lucency involving the medial margin of the proximal right femoral cortex. This is noted in the central portion of the femoral hard pappas component and not at the expected location for hardware motion or loosening. This is likely family support specialist veronica. Further evaluation with nuclear medicine bone scan can be considered there is clinical concern f or hardware loosening. 4. Moderate lower lumbar spondylosis. Reviewed by: Ian New MD on 05/11/2020 1:02 AM PST Approved by: Ian New MD on 05/11/2020 1:02 AM PST Station ID: [id number]
== END 2020-05-10 16:06 | disposition home or self-care (01) ==
LOC: DI 16:05
PROVIDERS: ATTEND Psychiatry & Neurology Neurology
DX: M47.26 Other spondylosis with radiculopathy, lumbar region (principal); M16.12 Unilateral primary osteoarthritis, left hip; Z96.641 Presence of right artificial hip joint

== ENCOUNTER 2020-06-18 11:19 | Outpatient (CLI) | payer MEDICARE, OTHER | END 2020-06-18 11:20 | disposition home or self-care (01) | LOC: LAB 11:19 | PROVIDERS: ATTEND Psychiatry & Neurology Neurology | DX: G60.3 Idiopathic progressive neuropathy (principal) | CPT/HCPCS: 36415; 81599; 82595; 83520; 85651; 86021; 86038; 86140; 86235 ==

== ENCOUNTER 2020-08-16 | Outpatient (CLI) | payer MEDICARE, OTHER | END 2020-08-16 13:39 | disposition E | DX: I46.9 Cardiac arrest, cause unspecified (principal) | CPT/HCPCS: A0425; A0429 ==